=== PATIENT | female | born 1940 | race Caucasian/White ===

== ENCOUNTER 2017-01-27 17:32 | Outpatient (CLI) | payer MEDICARE, OTHER | END 2017-01-27 17:33 | disposition home or self-care (01) | DX: F04 Amnestic disorder due to known physiological condition (principal); G31.9 Degenerative disease of nervous system, unspecified ==

== ENCOUNTER 2017-02-22 13:20 | Outpatient (CLI) | payer MEDICARE, OTHER | END 2017-02-22 13:21 | disposition home or self-care (01) | DX: E04.2 Nontoxic multinodular goiter (principal) ==

== ENCOUNTER 2017-05-24 14:12 | Outpatient (CLI) | payer MEDICARE, OTHER ==
--- NOTE | 2017-05-26 11:45 | DEXA Report ---
DEXA BONE MINERAL DENSITY SCAN: 05/24/2017 CLINICAL HISTORY: A 76-year-old female who has osteoporosis. TECHNIQUE: Dual energy x-ray absorptiometry (DXA) was performed on a [employer] system. Regions measured are the AP spine, femoral neck, and, if needed, forearm. COMPARISON: None. In accordance with the International Society for Clinical Densitometry (ISCD) guidelines, data from previous exams may be reanalyzed using current recommendations and techniques. This is done to allow a more accurate basis for comparison with the current study. FINDINGS: L1 through L4 bone mineral density is 1.006 grams/sq cm for a T-score of -1.4. This is compatible with osteopenia according to World Health Organization guidelines. Left hip total bone mineral density is 0.816 grams/sq cm for a T-score of -1.5. This is compatible with osteopenia according to World Health Organization guidelines. Left femoral neck bone mineral density is 0.770 grams/sq cm. This is consistent with a T-score of -1.9 indicative of osteopenia according to World Health Organization guidelines. The data for the lumbar spine is as follows: REGION BMD (g/cm/cm) T-SCORE Z-SCORE L1 0.954 -1.5 0.6 L2 0.973 -1.9 0.2 L3 1.017 -1.5 0.5 L4 1.064 -1.1 0.9 TOTAL 1.006 -1.4 0.6 NOTE: All evaluable vertebrae are used for classification. The data for the hip is as follows: REGION BMD (g/cm/cm) T-SCORE Z-SCORE Neck 0.770 -1.9 0.2 TOTAL 0.816 -1.5 0.5 NOTE: The femoral neck or total proximal femur, whichever is lowest, is used for classification. IMPRESSION: THE WHO CLASSIFICATION BASED ON THE INTERNATIONAL REFERENCE STANDARD IS OSTEOPENIA. THE FRACTURE RISK IS INCREASED. RECOMMENDATION: Patients with diagnosis of osteoporosis or osteopenia should have regular bone mineral density assessment. For those eligible for Medicare, routine testing is allowed once every 2 years. Testing frequency can be increased for patients who have rapidly progressing disease or for those who are receiving medical therapy to restore bone mass. COMMENT: World Health Organization (WHO) definitions for osteoporosis and osteopenia: NORMAL BMD: T-score at -1.0 or higher, fracture risk is low. OSTEOPENIA BMD: T-score between -1.0 and -2.5, fracture risk is increased. OSTEOPOROSIS BMD: T-score at -2.5 or lower, fracture risk high. National Osteoporosis Foundation recommends: 1. Obtain adequate dietary calcium (at least 1200 mg per day) and vitamin D (400 -800 international units per day). 2. Participate, as appropriate, in regular weightbearing and muscle- strengthening exercise. 3. Avoid tobacco use and reduce alcohol and caffeine intake. 4. For more detailed information see the website at www.NOF.org. MTDD
== END 2017-05-24 14:13 | disposition home or self-care (01) ==
LOC: DI 14:12
PROVIDERS: ATTEND Internal Medicine
DX: M85.89 Other specified disorders of bone density and structure, multiple sites (principal)
CPT/HCPCS: 77080

== ENCOUNTER 2017-05-24 14:14 | Outpatient (CLI) | payer MEDICARE, OTHER ==
--- NOTE | 2017-05-25 13:34 | Mammography Report ---
DIGITAL BILATERAL SCREENING MAMMOGRAPHY: 05/24/2017 CLINICAL HISTORY: This is a 76-year-old female in for routine screening mammogram. Patient has no f amily history of breast cancer. Patient has had no prior breast surgeries. COMPARISON: 04/04/2007, 03/22/2008, 04/01/2010, 01/04/2012, 06/03/2014, . TECHNIQUE: Craniocaudad and oblique lateral views of each breast were obtained with [employer]ologic full-fie ld digital mammography. FINDINGS: Breasts are almost entirely composed of fat. No significant clusters of calcification are seen. No significant kallie are noted. No change is noted. IMPRESSION: BREASTS APPEAR RADIOGRAPHICALLY BENIGN. BI-RADS 1. Negative. RECOMMENDATION: Annual bilateral screening mammography. STANDARD QUALIFYING STATEMENTS 1. This examination was reviewed with the aid of Computer-Aided Detection (CAD). 2. A negative or benign imaging report should not delay biopsy if clinically suspicious findings are present. Consider surgical consultation if warranted. More than 5% of cancers are not identified by i maging. 3. Dense breasts may obscure an underlying neoplasm. JOB #: [id number] EXT JOB #:[id number]
== END 2017-05-24 14:15 | disposition home or self-care (01) ==
LOC: DI 14:14
PROVIDERS: ATTEND Internal Medicine
DX: Z12.31 Encounter for screening mammogram for malignant neoplasm of breast (principal); Z80.3 Family history of malignant neoplasm of breast
CPT/HCPCS: 77067

== ENCOUNTER 2018-08-08 11:42 | Outpatient (CLI) | payer MEDICARE, OTHER ==
--- NOTE | 2018-08-08 16:31 | XRAY Report ---
Reason: PAIN AND EDEMA 2ND MP JOINT R FOOT X 4 WEEKS Procedure Date: 08/08/2018 Accession Number: [id number] / [id number] Procedure: XR - Foot 3 View RT CPT Code: FULL RESULT: EXAM: RIGHT FOOT RADIOGRAPHY EXAM DATE: 08/08/2018 12:12 PM. CLINICAL HISTORY: Pain and edema 2nd MP joint right foot x 4 weeks. COMPARISON: None. TECHNIQUE: 3 views. FINDINGS: Bones: Mild inferior calcaneal spurring is noted. There is osseous overgrowth at the distal first metatarsal head with overlying soft tissue swelling. No fractures or aggressive bone lesions. Joints: Normal. No subluxations. IMPRESSION: Bunion and plantar enthesopathy. RADIA
== END 2018-08-08 11:43 | disposition home or self-care (01) ==
LOC: DI 11:42
PROVIDERS: ATTEND Podiatrist
DX: M21.611 Bunion of right foot (principal); M77.51 Other enthesopathy of right foot and ankle

== ENCOUNTER 2019-08-24 12:39 | Outpatient (CLI) | payer MEDICARE, OTHER ==
--- NOTE | 2019-08-27 09:32 | DEXA Report ---
Reason: MENOPAUSAL AND FEMALE CLIMACTERIC STATES Procedure Date: 08/24/2019 Accession Number: [id number] / [id number] Procedure: DEX - Dexa Spine and/or Hip CPT Code: FULL RESULT: EXAM: Dexa Spine and/or Hip DATE: 08/24/2019 1:16 PM CLINICAL HISTORY: Postmenopausal with personal history of osteopenia. A history of thyroid replacement therapy. TECHNIQUE: Dual energy x-ray absorptiometry (DXA) was performed on a [employer] System. Regions measured are the AP Spine, femoral neck, and if needed forearm. COMPARISON: 05/24/2017. In accordance with the International Society for Clinical Densitometry (ISCD) guidelines, data from previous exams may be reanalyzed using current recommendations and techniques. This is done to allow a more accurate basis for comparison with the current study. FINDINGS: The data for the lumbar spine is as follows: BMD (g/cm/cm) T-SCORE Z-SCORE REGION L1 0.923 -1.7 0.5 L2 0.937 -2.2 0.0 L3 0.939 -2.2 0.0 L4 1.053 -1.2 1.0 TOTAL 0.971 -1.7 0.4 NOTE: All evaluable vertebrae are used for classification The data for the hip is as follows: BMD (g/cm/cm) T-SCORE Z-SCORE REGION Neck 0.732 -2.2 0.1 TOTAL 0.787 -1.8 0.5 NOTE: The femoral neck or total proximal femur, whichever is lowest, is used for classification. DXA RESULTS SUMMARY: Spine SCAN DATE AGE BMD CHANGE VS CHANGE VS PREVIOUS PREVIOUS % 8/24/2019 [age] 0.971 -0.035* -3.5* 05/24/2017 [age] 1.006 * Denotes significant change at the 95% confidence level. Denotes dissimilar scan types or analysis methods. DXA RESULTS SUMMARY: Hip SCAN DATE AGE BMD CHANGE VS CHANGE VS PREVIOUS PREVIOUS % [birth year][age]24[birth year]2019 [age] 0.787 -0.029 -3.6 05/24/2017 [age] 0.816 * Denotes significant change at the 95% confidence level. Denotes dissimilar scan types or analysis methods. IMPRESSION: THE WHO CLASSIFICATION BASED ON THE INTERNATIONAL REFERENCE STANDARD IS OSTEOPENIA, REFERENCE LEFT FEMORAL NECK.. THE FRACTURE RISK IS INCREASED. Comment: The bone mineral density in both the lumbar spine and left hip have decreased since 05/24/2017. The decrease is statistically significant in the lumbar spine. RECOMMENDATION: Patients with diagnosis of osteoporosis or osteopenia should have regular bone mineral density assessment. For those eligible for Medicare, routine testing is allowed once every 2 years. Testing frequency can be increased for patients who have rapidly progressing disease or for those who are receiving medical therapy to restore bone mass. COMMENT: World Health Organization (WHO) definitions for osteoporosis and osteopenia: NORMAL BMD: T-score at -1.0 or higher, fracture risk is low OSTEOPENIA BMD: T-score between -1.0 and -2.5, fracture risk is increased. OSTEOPOROSIS BMD: T-score at -2.5 or lower, fracture risk is high. National Osteoporosis Foundation recommends: 1. Obtain adequate dietary calcium (at least 1200 mg per day) and vitamin D (400-800 international units per day). 2. Participate, as appropriate, in regular weightbearing and muscle-strengthening exercise. 3. Avoid tobacco use and reduce alcohol and caffeine intake. 4. For more detailed information see the website at www.NOF.org.
== END 2019-08-24 12:40 | disposition home or self-care (01) ==
LOC: DI 12:39
PROVIDERS: ATTEND Internal Medicine
DX: M85.89 Other specified disorders of bone density and structure, multiple sites (principal)
CPT/HCPCS: 77080

== ENCOUNTER 2019-08-24 12:41 | Outpatient (CLI) | payer MEDICARE, OTHER ==
--- NOTE | 2019-08-27 11:03 | Mammography Report ---
Reason: SCREENING MAMMO Procedure Date: 08/24/2019 Accession Number: [id number] / [id number] Procedure: SHAN - Screening Mammo w/Phil CPT Code: FULL RESULT: EXAM: Screening Mammo w/Phil DATE: 08/24/2019 1:39 PM CLINICAL HISTORY: Routine screening TECHNIQUE: (B) - Bilateral CC and MLO views were obtained. COMPARISON: 05/24/2017, 04/06/2016, 06/03/2014, 01/04/2012 and 04/01/2010 PARENCHYMAL PATTERN: (A) - The breasts demonstrate scattered fibroglandular densities bilaterally. FINDINGS: No significant interval change. There are no suspicious masses, calcifications, or areas of distortion. IMPRESSION: Negative examination. BI-RADS category 1. RECOMMENDATION: (ANNUAL) - Recommend routine annual screening mammography. BI-RADS CATEGORY: (1) - Negative. STANDARD QUALIFYING STATEMENTS: 1. This examination was not reviewed with the aid of Computer-Aided Detection (CAD). 2. A negative or benign imaging report should not preclude biopsy if clinically suspicious findings are present. 3. Dense breasts may obscure an underlying neoplasm. 4. This examination was reviewed with the aid of 3D breast imaging (tomosynthesis).
== END 2019-08-24 12:42 | disposition home or self-care (01) ==
LOC: DI 12:41
PROVIDERS: ATTEND Internal Medicine
DX: Z12.31 Encounter for screening mammogram for malignant neoplasm of breast (principal)
CPT/HCPCS: 77063; 77067

== ENCOUNTER 2020-05-08 06:12 | Outpatient (CLI) | payer MEDICARE, OTHER | END 2020-05-08 06:13 | disposition critical access hospital (66) | LOC: EMS 06:12 | PROVIDERS: ATTEND Surgery | DX: R55 Syncope and collapse (principal) | CPT/HCPCS: A0425; A0429 ==

== ENCOUNTER 2020-05-08 06:35 | Emergency (ER) | payer MEDICARE, OTHER ==
--- NOTE | 2020-05-08 08:11 | ED Physician Documentation ---
PD HPI SYNCOPE - Stated complaint Stated Complaint: GLF - Chief complaint Chief Complaint: Neuro - History obtained from History obtained from: Patient, Family - History of Present Illness Witnessed: Witnessed Timing - onset: Enter time (0600), Today Duration: Seconds Preceding symptoms: Light headed, Other (anxiety) Associated symptoms: No: Seizure, Incontinant of urine, Incontinant of stool, Headache, Chest pain, Palpitations, Diaphoresis, Dyspnea, Nausea / vomiting, Abdominal pain Contributing factors: Emotional upset Injury occurred: None Similar symptoms before: Has not had sx before Recently seen: Clinic - Additional information Additional information: 79-year-old female previously well has had some issues with anxiety recently today 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 She was attended to by her and she is brought to the ED for evaluation. The patient is relatively certain she had a panic attack as the etiology. She has recently started on an antidepressant for anxiety. Review of Systems Constitutional: denies: Fever Eyes: denies: Decreased vision Ears: denies: Ear pain Nose: denies: Rhinorrhea / runny nose, Congestion Throat: denies: Sore throat Cardiac: denies: Chest pain / pressure, Palpitations Respiratory: denies: Dyspnea, Cough GI: denies: Abdominal Pain, Nausea, Vomiting : denies: Dysuria, Frequency Skin: denies: Rash PD PAST MEDICAL HISTORY - Past Medical History Past Medical History: Yes Cardiovascular: Hypertension, High cholesterol Respiratory: None Neuro: None Endocrine/Autoimmune: HyPOthyroidism GI: Colon polyps APPLICATION SECURITY ENGINEER: None : None HEENT: Chronic hearing loss Psych: None Musculoskeletal: Osteoarthritis, Osteoporosis Derm: None - Past Surgical History Past Surgical History: Yes General: Colonoscopy Ortho: Knee replacement /APPLICATION SECURITY ENGINEER: Tubal ligation - Present Medications Home Medications: Ambulatory Orders Medication Instructions Recorded Confirmed Levothyroxine Sodium [Synthroid] 50 mcg PO 12/06/13 12/06/13 NIFEdipine [Procardia Xl] 30 mg PO ONCE 12/06/13 12/06/13 Simvastatin [Zocor] 20 mg PO QPM 12/06/13 12/06/13 - Allergies Allergies/Adverse Reactions: Allergies Allergy/AdvReac Type Severity Reaction Status Date / Time No Known Drug Allergies Allergy Verified 05/08/20 06:55 - Social History Does the pt smoke?: No Smoking Status: Never smoker Does the pt drink ETOH?: No Does the pt have substance abuse?: No - Immunizations Immunizations are current?: Yes - POLST Patient has POLST: No PD ED PE NORMAL - Vitals Vital signs reviewed: Yes (hypertensive ) - General General: Alert and oriented X 3, No acute distress, Well developed/nourished - HEENT HEENT: Atraumatic, PERRL, EOMI - Neck Neck: Supple, no meningeal sign, No bony TTP - Cardiac Cardiac: RRR, No murmur - Respiratory Respiratory: No respiratory distress, Clear bilaterally - Abdomen Abdomen: Normal bowel sounds, Soft, Non tender, Non distended, No organomegaly - Back Back: No CVA TTP, No spinal TTP - Derm Derm: Normal color, Warm and dry, No rash - Extremities Extremities: No deformity, No edema, No calf tenderness / cord - Neuro Neuro: Alert and oriented X 3, guidance counselor 2-12 intact, No motor deficit, No sensory deficit, Normal speech Eye Opening: Spontaneous Motor: Obeys Commands Verbal: Oriented GCS Score: 15 - Psych Psych: Normal mood, Normal affect Results - Vitals Vitals: Vital Signs - 24 hr 05/08/20 05/08/20 06:52 12:02 Temperature 36.4 C L 36.5 C Heart Rate 65 69 Respiratory 16 14 Rate Blood Pressure 161/69 H 102/88 H O2 Saturation 93 100 Oxygen O2 Source Room air - EKG (time done) 0838 Rate: Rate (enter#) (63) Rhythm: NSR, LAE Compare to prior EKG: Old EKG unavailable Computer interpretation: Agree with computer - Labs Labs: Laboratory Tests 05/08/20 05/08/20 05/08/20 08:20 08:20 08:20 WBC 8.3 RBC 5.14 Hgb 14.9 Hct 47.3 H MCV 92.0 MCH 29.0 MCHC 31.5 L RDW 12.1 Plt Count 239 MPV 10.4 Neut # (Auto) 7.0 H Lymph # (Auto) 0.9 L [place] # (Auto) 0.3 Eos # (Auto) 0.0 Baso # (Auto) 0.0 Absolute Nucleated RBC 0.00 Nucleated RBC % 0.0 Sodium 141 Potassium 3.1 L Chloride 101 Carbon Dioxide 28 Anion Gap 12.0 BUN 15 Creatinine 0.9 Estimated GFR (MDRD) 60 L Glucose 115 H Calcium 9.5 Total Bilirubin 0.5 AST 22 ALT 11 Alkaline Phosphatase 55 Troponin I High Sens 5.5 Total Protein 7.5 Albumin 4.5 Globulin 3.0 Albumin/Globulin Ratio 1.5 Lipase 33 Urine Color Urine Clarity Urine pH Ur Specific [place] Urine Protein Urine Glucose (UA) Urine Ketones Urine Occult Blood Urine Nitrite Urine Bilirubin Urine Urobilinogen Ur Leukocyte Esterase Ur Microscopic Review Urine Culture Comments 05/08/20 11:10 WBC RBC Hgb Hct MCV MCH MCHC RDW Plt Count MPV Neut # (Auto) Lymph # (Auto) [place] # (Auto) Eos # (Auto) Baso # (Auto) Absolute Nucleated RBC Nucleated RBC % Sodium Potassium Chloride Carbon Dioxide Anion Gap BUN Creatinine Estimated GFR (MDRD) Glucose Calcium Total Bilirubin AST ALT Alkaline Phosphatase Troponin I High Sens Total Protein Albumin Globulin Albumin/Globulin Ratio Lipase Urine Color YELLOW Urine Clarity CLEAR Urine pH 7.5 Ur Specific [place] 1.015 Urine Protein NEGATIVE Urine Glucose (UA) NEGATIVE Urine Ketones NEGATIVE Urine Occult Blood NEGATIVE Urine Nitrite NEGATIVE Urine Bilirubin NEGATIVE Urine Urobilinogen 0.2 (NORMAL) Ur Leukocyte Esterase NEGATIVE Ur Microscopic Review NOT INDICATED Urine Culture Comments NOT INDICATED Procedures - IVC sono (time) 0805 Bedside IVC sono: IVC measures (cm) (1.42), Euvolemia PD MEDICAL DECISION MAKING - ED course Complexity details: considered differential, d/w patient, d/w family ED course: 79-year-old female with a syncopal episode believed to be secondary to a panic attack is evaluated here in the emergency department with blood work and electrocardiogram. All studies are unremarkable Departure - Departure Disposition: 01 Home, Self Care Clinical Impression: Stress reaction Condition: Stable Instructions: ED Stress React Follow-Up: Kenneth Cloud MD [Primary Care Provider] - Discharge Date/Time: 05/08/20 12:08
[2020-05-08 08:41] LABS: BASOPHILS % (AUTO) 0.4 %; EOSINOPHILS % (AUTO) 0.1 %; HGB - HEMOGLOBIN 14.9 g/dL (12.0-16.0); LYMPHOCYTES # (AUTO) 0.9 10^3/uL (1.5-3.5); LYMPHOCYTES % (AUTO) 10.9 %; MEAN CORPUSCULAR HGB CONC 31.5 g/dL (32.0-36.0); MEAN PLATELET VOLUME 10.4 fL (7.9-10.8); MONOCYTES # (AUTO) 0.3 10^3/uL (0.0-1.0); MONOCYTES % (AUTO) 4.1 %; NEUTROPHILS % (AUTO) 84.3 %; PLT - PLATELET COUNT 239 10^3/uL (130-450); RED BLOOD COUNT 5.14 10^6/uL (4.20-5.40); RED CELL DISTRIBUTION WIDTH 12.1 % (12.0-15.0); WHITE BLOOD COUNT 8.3 x10^3/uL (4.8-10.8)
[2020-05-08 08:57] LABS: ALBUMIN 4.5 g/dL (3.2-5.5); ALBUMIN/GLOBULIN RATIO 1.5 (1.0-2.2); BILIRUBIN,TOTAL 0.5 mg/dL (0.2-1.0); CALCIUM 9.5 mg/dL (8.5-10.3); CREATININE 0.9 mg/dL (0.4-1.0); TOTAL PROTEIN 7.5 g/dL (6.7-8.2)
[2020-05-08] MEDS ORDERED: POTASSIUM CHLORIDE 20 MEQ TABLET PO STA (09:40)
[2020-05-08 11:30] LABS: BILIRUBIN,URINE NEGATIVE (NEGATIVE); GLUCOSE, URINE (UA) NEGATIVE (NEGATIVE); KETONES,URINE (UA) NEGATIVE (NEGATIVE); LEUKOCYTE ESTERASE, URINE NEGATIVE (NEGATIVE); NITRITE,URINE NEGATIVE (NEGATIVE); OCCULT BLOOD,URINE NEGATIVE (NEGATIVE); PH,URINE 7.5 PH (5.0-7.5); PROTEIN,URINE NEGATIVE (NEGATIVE); UROBILINOGEN,URINE 0.2 (NORMAL) E.U./dL (NORMAL)
[2020-05-08 11:33] LABS: CLARITY,URINE CLEAR (CLEAR)
[2020-05-08 12:04] VITALS: BP 102/88
== END 2020-05-08 12:08 | disposition home or self-care (01) ==
LOC: EDUNIT# → ED 06:35
DX: R55 Syncope and collapse (principal); F43.9 Reaction to severe stress, unspecified; F41.9 Anxiety disorder, unspecified; I10 Essential (primary) hypertension
CPT/HCPCS: 36415; 80053; 81003; 83690; 84484; 85025; 93005; 99284; A9270; 81001; 87086

== ENCOUNTER 2020-12-22 10:11 | Outpatient (CLI) | payer MEDICARE, OTHER ==
--- NOTE | 2020-12-22 10:32 | CT Report ---
PROCEDURE: HEAD WO INDICATIONS: ORGANIC MEMORY IMPAIRMENT TECHNIQUE: Noncontrast 4.5 mm thick angled axial sections acquired from the foramen magnum to the vertex. For r adiation dose reduction, the following was used: automated exposure control, adjustment of mA and/or kV according to patient size. COMPARISON: 01/27/2017 FINDINGS: Image quality: Excellent. CSF spaces: Basal cisterns are patent. No extra-axial fluid collections. Ventricles are normal in size and shape. Brain: No midline shift. No intracranial masses or hemorrhage. Wells-white matter interface is norm al. Skull and face: Calvarium and visualized facial bones are intact, without suspicious lesions. Sinuses: Visualized sinuses and mastoids are clear. IMPRESSION: Unremarkable intracranial study for age, with note made of brain parenchymal volume loss and chronic small vessel ischemic change. Reviewed by: Liang Taylor MD on 12/22/2020 9:30 AM [facility] Approved by: Liang Taylor MD on 12/22/2020 9:30 AM [facility] Station ID: [id number]
== END 2020-12-22 10:12 | disposition home or self-care (01) ==
LOC: DI 10:11
PROVIDERS: ATTEND Internal Medicine
DX: F04 Amnestic disorder due to known physiological condition (principal)

== ENCOUNTER 2021-03-19 13:01 | Outpatient (CLI) | payer MEDICARE, OTHER ==
--- NOTE | 2021-03-20 10:47 | Mammography Report ---
BILATERAL DIGITAL SCREENING MAMMOGRAM 3D/2D: 03/19/2021 CLINICAL: Routine screening. Comparison is made to exams dated: 08/24/2019 mammogram, 05/24/2017 mammogram, 04/06/2016 mammogram, mammogram, 01/04/2012 mammogram, and 04/01/2010 mammogram - [facility]. The re are scattered fibroglandular elements in both breasts. No significant masses, calcifications, or other findings are seen in either breast. There has been no significant interval change. IMPRESSION: NEGATIVE There is no mammographic evidence of malignancy. A 1 year screening mammogram is recommended. This exam was interpreted at Station ID: [id number]. NOTE: For mammograms, a report in lay terms will be sent to the patient. Approximately 15% of breast malignancies will not be visualized mammographically. In the management of a palpable breast mass, a negative mammogram must not discourage biopsy of a clinically suspicious lesion. Electronically Signed By: Tremaine Aguillon M.D. ddp/penrad:03/19/2021 13:39:56 ACR BI-RADS Category 1: Negative [id number] PARENCHYMAL PATTERN: (A) - The breast(s) demonstrate(s) scattered fibroglandular densities. BI-RADS CATEGORY: (1) - 1 RECOMMENDATION: (ANNUAL) - Recommend routine annual screening mammography. [id number] 1 year screening LATERALITY: (B)
== END 2021-03-19 13:02 | disposition home or self-care (01) ==
LOC: DI.N 13:01
PROVIDERS: ATTEND Internal Medicine
DX: Z12.31 Encounter for screening mammogram for malignant neoplasm of breast (principal)

== ENCOUNTER 2021-08-06 08:25 | Outpatient (CLI) | payer MEDICARE, OTHER ==
--- NOTE | 2021-08-06 08:49 | CT Report ---
PROCEDURE: HEAD WO INDICATIONS: AMNESTIC DISORDER DUE TO KNOWN PHYSIOLOGICAL CONDI TECHNIQUE: Noncontrast 4.5 mm thick angled axial sections acquired from the foramen magnum to the vertex. For r adiation dose reduction, the following was used: automated exposure control, adjustment of mA and/or kV according to patient size. COMPARISON: 12/22/2020 and 01/27/2017 FINDINGS: Image quality: Excellent. CSF spaces: Basal cisterns are patent. No extra-axial fluid collections. The ventricles are symmet priscila in size and shape. Brain: No intracranial bleeds or masses. There is cerebral volume loss for age, with resultant vent ricular and sulcal prominence. There are periventricular and deep white matter chronic small vessel ischemic changes. There is intracranial internal carotid artery atherosclerosis. Skull and face: Calvarium and visualized facial bones appear intact, without suspicious lesions. Sinuses: Visualized sinuses and mastoids are clear. IMPRESSION: Stable examination with no acute intracranial disease process. Reviewed by: Sana Mack MD, PhD on 08/06/2021 8:48 AM PDT Approved by: Sana Mack MD, PhD on 08/06/2021 8:48 AM PDT Station ID: [id number]
== END 2021-08-06 08:26 | disposition home or self-care (01) ==
LOC: DI 08:25
PROVIDERS: ATTEND Internal Medicine
DX: F04 Amnestic disorder due to known physiological condition (principal)

== ENCOUNTER 2022-03-13 07:41 | Outpatient (CLI) | payer MEDICARE, OTHER | END 2022-03-13 07:42 | disposition critical access hospital (66) | LOC: EMS 07:41 | DX: R55 Syncope and collapse (principal); R10.9 Unspecified abdominal pain; R15.9 Full incontinence of feces; R19.7 Diarrhea, unspecified; R42 Dizziness and giddiness; R53.1 Weakness | CPT/HCPCS: A0425; A0429 ==

== ENCOUNTER 2022-03-13 08:04 | Emergency (ER) | payer MEDICARE, OTHER ==
[2022-03-13 09:16] LABS: BASOPHILS % (AUTO) 0.4 %; EOSINOPHILS # (AUTO) 0.1 10^3/uL (0.0-0.7); EOSINOPHILS % (AUTO) 1.2 %; HCT - HEMATOCRIT 41.6 % (37.0-47.0); HGB - HEMOGLOBIN 13.4 g/dL (12.0-16.0); MEAN CORPUSCULAR HEMOGLOBIN 29.1 pg (27.0-31.0); MEAN CORPUSCULAR HGB CONC 32.2 g/dL (32.0-36.0); MEAN CORPUSCULAR VOLUME 90.2 fL (81.0-99.0); MEAN PLATELET VOLUME 10.1 fL (7.9-10.8); MONOCYTES # (AUTO) 0.5 10^3/uL (0.0-1.0); MONOCYTES % (AUTO) 6.8 %; NEUTROPHILS # (AUTO) 5.2 10^3/uL (1.5-6.6); NEUTROPHILS % (AUTO) 76.3 %; PLT - PLATELET COUNT 184 10^3/uL (130-450); RED BLOOD COUNT 4.61 10^6/uL (4.20-5.40); RED CELL DISTRIBUTION WIDTH 11.7 % (12.0-15.0); WHITE BLOOD COUNT 6.8 x10^3/uL (4.8-10.8)
[2022-03-13] MEDS ORDERED: SODIUM CHLORIDE 0.9% 1,000 ML IV STA (09:21)
[2022-03-13 09:31] LABS: ALBUMIN 3.7 g/dL (3.2-5.5); ALBUMIN/GLOBULIN RATIO 1.2 (1.0-2.2); ALKALINE PHOSPHATASE 56 IU/L (42-121); ALT ALANINE AMINOTRANSFERASE < 10 IU/L (10-60); AST ASPARTATE AMINOTRANSFERASE 20 IU/L (10-42); BILIRUBIN,TOTAL 0.4 mg/dL (0.2-1.0); BUN - BLOOD UREA NITROGEN 15 mg/dL (6-20); CALCIUM 9.1 mg/dL (8.5-10.3); CARBON DIOXIDE - CO2 25 mmol/L (21-32); CHLORIDE 104 mmol/L (101-111); CREATININE 0.8 mg/dL (0.4-1.0); GFR - MDRD 69 (>89); GLUCOSE 99 mg/dL (70-100); LIPASE 111 U/L (22-51); POTASSIUM 3.7 mmol/L (3.5-5.0); SODIUM 138 mmol/L (135-145); TOTAL PROTEIN 6.7 g/dL (6.7-8.2)
--- NOTE | 2022-03-13 09:53 | ED Physician Documentation ---
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 She has had 3 other episodes of syncope or near near syncope this year. Review of Systems Constitutional: denies: Fever Eyes: denies: Decreased vision Ears: denies: Ear pain Nose: denies: Congestion Throat: denies: Sore throat Cardiac: denies: Chest pain / pressure, Palpitations Respiratory: denies: Dyspnea, Cough GI: reports: Diarrhea. denies: Abdominal Pain, Nausea, Vomiting : denies: Dysuria, Frequency Skin: denies: Rash Musculoskeletal: denies: Neck pain, Back pain, Extremity pain Neurologic: reports: Near syncope, Syncope. denies: Generalized weakness, Focal weakness, Numbness, Difficulty speaking, Confused, Altered mental status, Headache, Head injury, LOC PD PAST MEDICAL HISTORY - Past Medical History Past Medical History: Yes Cardiovascular: Hypertension, High cholesterol Respiratory: None Neuro: None Endocrine/Autoimmune: HyPOthyroidism GI: Colon polyps CASING TIER: None : None HEENT: Chronic hearing loss Psych: None Musculoskeletal: Osteoarthritis, Osteoporosis Derm: None - Past Surgical History Past Surgical History: Yes General: Colonoscopy Ortho: Knee replacement /CASING TIER: Tubal ligation - Present Medications Home Medications: Ambulatory Orders Medication Instructions Recorded Confirmed Levothyroxine Sodium [Synthroid] 50 mcg PO 12/06/13 12/06/13 NIFEdipine [Procardia Xl] 30 mg PO ONCE 12/06/13 12/06/13 Simvastatin [Zocor] 20 mg PO QPM 12/06/13 12/06/13 - Allergies Allergies/Adverse Reactions: Allergies Allergy/AdvReac Type Severity Reaction Status Date / Time No Known Drug Allergies Allergy Verified 03/13/22 08:13 - Social History Does the pt smoke?: No Smoking Status: Never smoker Does the pt drink ETOH?: No Does the pt have substance abuse?: No - Immunizations Immunizations are current?: Yes - POLST Patient has POLST: No PD ED PE NORMAL - Vitals Vital signs reviewed: Yes (hypertensive mild) - General General: Alert and oriented X 3, No acute distress, Well developed/nourished - HEENT HEENT: Atraumatic, PERRL, EOMI - Neck Neck: Supple, no meningeal sign, No bony TTP - Cardiac Cardiac: RRR, No murmur - Respiratory Respiratory: No respiratory distress, Clear bilaterally - Abdomen Abdomen: Normal bowel sounds, Soft, Non tender, Non distended, No organomegaly - Back Back: No CVA TTP, No spinal TTP - Derm Derm: Normal color, Warm and dry, No rash - Extremities Extremities: No deformity, No edema - Neuro Neuro: Alert and oriented X 3, manager pet 2-12 intact, No motor deficit, No sensory deficit, Normal speech Eye Opening: Spontaneous Motor: Obeys Commands Verbal: Oriented GCS Score: 15 - Psych Psych: Normal mood, Normal affect Results - Vitals Vitals: Vital Signs - 24 hr 03/13/22 03/13/22 03/13/22 08:08 08:16 10:15 Temperature 37.0 C Heart Rate 61 61 66 Respiratory 16 16 15 Rate Blood Pressure 149/77 H 149/77 H 115/64 O2 Saturation 99 99 97 03/13/22 03/13/22 03/13/22 12:00 14:06 16:06 Temperature Heart Rate 66 60 66 Respiratory 17 16 11 L Rate Blood Pressure 142/69 H 147/55 H 155/62 H O2 Saturation 98 96 100 Oxygen O2 Source Room air - EKG (time done) 901 Rate: Rate (enter#) (65) Rhythm: NSR Ischemia: Normal ST segments Compare to prior EKG: Unchanged from prior EKG (SPT 05-08-20 no changes) Computer interpretation: Agree with computer 1202 Rate: Rate (enter#) (69) Rhythm: NSR Ischemia: Normal ST segments Compare to prior EKG: Unchanged from prior EKG (SPT ealier today no changes) Computer interpretation: Agree with computer - Labs Labs: Laboratory Tests 03/13/22 03/13/22 03/13/22 09:10 09:10 09:10 WBC 6.8 RBC 4.61 Hgb 13.4 Hct 41.6 MCV 90.2 MCH 29.1 MCHC 32.2 RDW 11.7 L Plt Count 184 MPV 10.1 Neut # (Auto) 5.2 Lymph # (Auto) 1.0 L Stanly # (Auto) 0.5 Eos # (Auto) 0.1 Baso # (Auto) 0.0 Absolute Nucleated RBC 0.00 Nucleated RBC % 0.0 Sodium 138 Potassium 3.7 Chloride 104 Carbon Dioxide 25 Anion Gap 9.0 BUN 15 Creatinine 0.8 Estimated GFR (MDRD) 69 L Glucose 99 Calcium 9.1 Total Bilirubin 0.4 AST 20 ALT < 10 L Alkaline Phosphatase 56 Troponin I High Sens 62.0 H* Total Protein 6.7 Albumin 3.7 Globulin 3.0 Albumin/Globulin Ratio 1.2 Lipase 111 H Urine Color Urine Clarity Urine pH Ur Specific [place] Urine Protein Urine Glucose (UA) Urine Ketones Urine Occult Blood Urine Nitrite Urine Bilirubin Urine Urobilinogen Ur Leukocyte Esterase Urine RBC Urine WBC Ur Squamous Epith Cells Urine Bacteria Ur Microscopic Review Urine Culture Comments SARS-CoV-2 (PCR) 03/13/22 03/13/22 03/13/22 10:10 11:07 13:02 WBC RBC Hgb Hct MCV MCH MCHC RDW Plt Count MPV Neut # (Auto) Lymph # (Auto) Stanly # (Auto) Eos # (Auto) Baso # (Auto) Absolute Nucleated RBC Nucleated RBC % Sodium Potassium Chloride Carbon Dioxide Anion Gap BUN Creatinine Estimated GFR (MDRD) Glucose Calcium Total Bilirubin AST ALT Alkaline Phosphatase Troponin I High Sens 182.8 H* Total Protein Albumin Globulin Albumin/Globulin Ratio Lipase Urine Color YELLOW Urine Clarity CLEAR Urine pH 7.0 Ur Specific [place] 1.010 Urine Protein NEGATIVE Urine Glucose (UA) NEGATIVE Urine Ketones NEGATIVE Urine Occult Blood NEGATIVE Urine Nitrite NEGATIVE Urine Bilirubin NEGATIVE Urine Urobilinogen 0.2 (NORMAL) Ur Leukocyte Esterase MODERATE H Urine RBC None Seen Urine WBC 4-5 Ur Squamous Epith Cells NONE SEEN Urine Bacteria Few Ur Microscopic Review INDICATED Urine Culture Comments INDICATED SARS-CoV-2 (PCR) NOT DETECTED 03/13/22 15:05 WBC RBC Hgb Hct MCV MCH MCHC RDW Plt Count MPV Neut # (Auto) Lymph # (Auto) Stanly # (Auto) Eos # (Auto) Baso # (Auto) Absolute Nucleated RBC Nucleated RBC % Sodium Potassium Chloride Carbon Dioxide Anion Gap BUN Creatinine Estimated GFR (MDRD) Glucose Calcium Total Bilirubin AST ALT Alkaline Phosphatase Troponin I High Sens 1222.8 H* Total Protein Albumin Globulin Albumin/Globulin Ratio Lipase Urine Color Urine Clarity Urine pH Ur Specific [place] Urine Protein Urine Glucose (UA) Urine Ketones Urine Occult Blood Urine Nitrite Urine Bilirubin Urine Urobilinogen Ur Leukocyte Esterase Urine RBC Urine WBC Ur Squamous Epith Cells Urine Bacteria Ur Microscopic Review Urine Culture Comments SARS-CoV-2 (PCR) - Rads (name of study) CTA chest Radiology: Prelim report reviewed (Impression:. No evidence for pulmonary embolism. No acute pulmonary opacity a 6 mm subsolid nodule in the right upper lobe. See enclosed follow-up recommendation mild cardiac megaly right thyroidectomy enlarged left thyroid lobe is heterogeneous enhancement), EMP read indepedently, See rad report Procedures - IVC sono (time) 0915 Bedside IVC sono: IVC measures (cm) (1.21), IVC collapsed c insp (cm) (complete), Dehydration (est 1 liter deficit) PD MEDICAL DECISION MAKING - ED course Complexity details: reviewed old records, reviewed results, re-evaluated patient, considered differential, d/w patient, d/w family ED course: Previously well 81-year-old female who has had syncopal episodes previously has had a syncopal episode today which appears to be of a vasovagal type reaction she was having a diarrheal bowel movement with abdominal cramping at the time. On initial presentation to the emergency department patient appeared mildly dehydrated and she was administered intravenous saline. She had a normal- appearing nonischemic electrocardiogram and we were surprised to find her troponin elevated at 62. A repeat troponin done 2 hours later was elevated at 182.8. A repeat olecranon gram done at the same time is also nonischemic appearing and unchanged.The patient had no episodes of arrhythmia during her stay in the emergency department. I called out to our friends at [facility] and talked to Dr. Duran who recommended placing the patient on heparin and aspirin and finding a bed for NSTEMI. They do not have beds at [facility] today. I called out to [facility] in [place] spoke to the software project manager there, Dr. Isra Ortega, who recommended admission for NSTEMI and stress test. Dr. Shadi Taylor the hospitalist at [facility] recommended a CT angiogram of the chest prior to transfer. This test was negative for PE had a 6mm nodule that will need one year followup. Departure - Departure Disposition: 02 Transfer Acute Care Hosp Clinical Impression: Non-STEMI (non-ST elevated myocardial infarction), Vasovagal syncope Condition: Stable
[2022-03-13 10:17] LABS: BILIRUBIN,URINE NEGATIVE (NEGATIVE); GLUCOSE, URINE (UA) NEGATIVE (NEGATIVE); KETONES,URINE (UA) NEGATIVE (NEGATIVE); LEUKOCYTE ESTERASE, URINE MODERATE (NEGATIVE); NITRITE,URINE NEGATIVE (NEGATIVE); OCCULT BLOOD,URINE NEGATIVE (NEGATIVE); PROTEIN,URINE NEGATIVE (NEGATIVE); UROBILINOGEN,URINE 0.2 (NORMAL) E.U./dL (NORMAL)
[2022-03-13 10:28] LABS: CLARITY,URINE CLEAR (CLEAR); RBC,URINE None Seen /HPF (0-5); SQUAMOUS EPITHELIAL CELL,UR NONE SEEN (<= Few)
[2022-03-13 10:29] LABS: BACTERIA,URINE Few /HPF (None Seen)
[2022-03-13] MEDS ORDERED: ASPIRIN CHEW 81 MG TABLET PO STA (11:46)
[2022-03-13] MEDS ORDERED: HEPARIN 25000UNITS/500ML (D5W) 25,000 UNIT/500 ML BAG IV SCH (12:00)
[2022-03-13] MEDS ORDERED: IOPAMIDOL-300 100 ML VIAL ONE (15:25)
[2022-03-13] MEDS ORDERED: IOPAMIDOL-300 100 ML VIAL IVP ONE (15:48)
--- NOTE | 2022-03-13 16:35 | CT Report ---
PROCEDURE: ANGIO CHEST W/WO INDICATIONS: PE study CONTRAST: IV CONTRAST: Isovue 300 ml: 80 PO CONTRAST: *NO PO CONTRAST TECHNIQUE: After the administration of intravenous contrast, 2 mm axial images were acquired from the pulmonary apices to the posterior costophrenic angles during the arterial phase. In addition, 1 mm lung kernel and 5 mm soft tissue kernel reconstructions were performed. 3-dimensional coronal oblique maximum int ensity projection (MIP) reformats, 8 mm axial MIP, and 5 mm coronal and sagittal MPR reformats were t hen performed through the thorax. For radiation dose reduction, the following was used: automated exp osure control, adjustment of mA and/or kV according to patient size. COMPARISON: None. FINDINGS: Image quality: Excellent. Pulmonary arteries: Pulmonary arteries are normal in size, and demonstrate no intraluminal filling d efects to suggest central pulmonary embolism. Lungs and pleura: There is a 6 mm subsolid nodule in the right upper lobe. No pleural effusions or p neumothorax. Central and peripheral airways are patent. Mediastinum: Heart size is mildly increased. No pericardial effusion. No mediastinal or hilar adeno belgica. Thoracic aorta is normal in caliber and enhancement. Esophagus is normal in caliber, without hiatal hernia. Bones and chest wall: No suspicious bony lesions. Scoliosis and degenerative changes in thoracic and upper lumbar spine. Ribs and thoracic spine appear intact throughout. No axillary or supraclavicula r adenopathy. Right thyroid lobe surgically resected. The thyroid is enlarged and heterogeneous. Abdomen: Visualized upper abdominal solid organs appear normal in the early arterial phase of enhanc ement. IMPRESSION: 1. No evidence for pulmonary embolism. 2. No acute pulmonary opacity. 3. A 6 mm subsolid nodule in the right upper lobe. These enclosed follow-up recommendation. 4. Mild cardiac megaly. 5. Right thyroidectomy. Enlarged left thyroid lobe is heterogeneous enhancement. Fleischner Society criteria for SOLID lung nodule followup. Nodule size (mm)Low-risk patientHigh-risk patient "d4No follow-up neededFollow-up at 12 mo; if no change, no further follow-up >[id number]-xs CT at 12 mo; if no change, no further follow-up needed.Initial follow-up CT at 6-12 mo, then 18-24 mo if no change. >6-8Initial follow-up CT at 6-12 mo, then 18-24 mo if no change. Initial follow-up CT at 3-6 mo, then 9-12 mo and 24 mo if no change. >8Follow-up CT at 3, 9, 24 mo. Or PET and/or biopsy.Same as for low-risk pts. Reviewed by: Tera Ballesteros MD on 03/13/2022 3:34 PM VIOLETTA Approved by: Tera Ballesteros MD on 03/13/2022 3:34 PM AKSETH Station ID: [id number]
[2022-03-13 18:05] VITALS: BP 134/82
== END 2022-03-13 19:45 | disposition short-term general hospital (02) ==
LOC: EDUNIT# → ED 08:04
DX: I21.4 Non-ST elevation (NSTEMI) myocardial infarction (principal); I10 Essential (primary) hypertension; E86.0 Dehydration
CPT/HCPCS: 36415; 71275; 80053; 81001; 83690; 84484; 85025; 85730; 87086; 87635; 93005; 96361; 96365; 96366; 96376; 99284; 99285; A9270; Q9967; 81003

== ENCOUNTER 2022-06-01 09:32 | Outpatient (CLI) | payer MEDICARE, OTHER ==
--- NOTE | 2022-06-01 11:57 | Mammography Report ---
BILATERAL DIGITAL SCREENING MAMMOGRAM 3D/2D: 06/01/2022 CLINICAL: Routine screening. Comparison is made to exams dated: 03/19/2021 mammogram, 08/24/2019 mammogram, 05/24/2017 mammogram, mammogram, and 06/03/2014 mammogram - [facility]. There are scattered fibr oglandular elements in both breasts. No significant masses, calcifications, or other findings are seen in either breast. There has been no significant interval change. IMPRESSION: NEGATIVE There is no mammographic evidence of malignancy. A 1 year screening mammogram is recommended. Based on the Tyrer Cuzick model (a risk assessment model) the patients lifetime risk is 0.7% and her 10 year risk is 0.0%. According to the ACR, ACS, and NCCN guidelines, an annual breast MRI exam ezequiel g with mammogram is recommended if the patients lifetime risk is 20% or greater. This exam was interpreted at Station ID: [id number]. NOTE: For mammograms, a report in lay terms will be sent to the patient. Approximately 15% of breast malignancies will not be visualized mammographically. In the management of a palpable breast mass, a negative mammogram must not discourage biopsy of a clinically suspicious lesion. Electronically Signed By: Charlie Urban acr/penrad:06/01/2022 10:22:13 ACR BI-RADS Category 1: Negative 3341F PARENCHYMAL PATTERN: (A) - The breast(s) demonstrate(s) scattered fibroglandular densities. BI-RADS CATEGORY: (1) - 1 RECOMMENDATION: (ANNUAL) - Recommend routine annual screening mammography. [id number] 1 year screening LATERALITY: (B)
== END 2022-06-01 09:33 | disposition home or self-care (01) ==
LOC: DI 09:32
PROVIDERS: ATTEND Internal Medicine
DX: Z12.31 Encounter for screening mammogram for malignant neoplasm of breast (principal); N95.1 Menopausal and female climacteric states

== ENCOUNTER 2022-06-01 09:33 | Outpatient (CLI) | payer MEDICARE, OTHER ==
--- NOTE | 2022-06-01 14:58 | DEXA Report ---
PROCEDURE: Dexa Spine and/or Hip INDICATIONS: POST MENOPAUSAL TECHNIQUE: Dual energy x-ray absorptiometry (DXA) was performed on a [employer] System. Regions measur ed are the AP Spine, femoral neck, and if needed forearm. COMPARISON: DEXA 08/24/2019 and 05/24/2017. FINDINGS: Lumbar Spine: Bone Mineral Density 0.866 g/cm/cm,T score -2.6, osteoporosis. This represents a 10.8% decrease wh en compared to the exam from 08/24/2019. Left Hip: Bone Mineral Density 0.672 g/cm/cm,T score -2.7, osteoporosis. This represents a 14.6% decrease when compared to the prior exam from 08/24/2019. Left Femoral Neck: Bone Mineral Density 0.679 g/cm/cm, T score -2.6, osteoporosis (T score greater or equal to -1.0: NORMAL) (T score from -1.1 to -2.4: OSTEOPENIA) (T score less than or equal to -2.5 to: OSTEOPOROSIS) Impression: Decreased bone mineral density within the osteoporosis range at the lumbar spine and left hip. Findin gs have progressed when compared to the prior DEXA from 08/24/2019. Patients with diagnosis of osteoporosis or osteopenia should have regular bone mineral density assess ment. For those eligible for Medicare, routine testing is allowed once every 2 years. Testing frequ ency can be increased for patients who have rapidly progressing disease or for those who are receivin g medical therapy to restore bone mass. Reviewed by: Arcenio Galloway MD on 06/01/2022 2:57 PM PDT Approved by: Arcenio Galloway MD on 06/01/2022 2:57 PM PDT Station ID: [id number]
== END 2022-06-01 09:34 | disposition home or self-care (01) ==
LOC: DI 09:33
PROVIDERS: ATTEND Internal Medicine
DX: M81.0 Age-related osteoporosis without current pathological fracture (principal)

== ENCOUNTER 2022-09-27 10:12 | Outpatient (CLI) | payer MEDICARE, OTHER | END 2022-09-27 10:13 | disposition critical access hospital (66) | LOC: EMS 10:12 | DX: R46.4 Slowness and poor responsiveness (principal); I95.9 Hypotension, unspecified; R00.1 Bradycardia, unspecified | CPT/HCPCS: A0425; A0427 ==

== ENCOUNTER 2022-09-27 10:36 | Emergency (ER) | payer MEDICARE, OTHER ==
[2022-09-27] MEDS ORDERED: SODIUM CHLORIDE 0.9% 1,000 ML IV STA ×3 (10:52→14:07)
--- OUTSIDE RECORDS SUMMARY | 2022-09-27 10:55 | EXTERNAL MEDICAL SUMMARY RPT | Continuity of Care Document ---
:1940 Author Organization [facility] Address [address] [place] [address] Phone Allergies No information. Encounters No information. Functional Status No information. Immunizations No information. Medications No information. Problems No information. Procedures No information. Results/Labs test date author facility value unit interpret ation Result panel 1 (unknown) (no (unknown) (unknown) (no value) (units (unk nown) date) unknown) (unknown) (no (unknown) (unknown) 08/24/22 (units (unkno wn) date) unknown) (unknown) (no (unknown) (unknown) [address] [place] [address] (units (unknown) date) unknown) (unknown) (no (unknown) (unknown) Accession (units (unkn own) date) Number: unknown) [id number] (unknown) (no (unknown) (unknown) Age/Sex: 82 / F (units (unknown) date) Date of Service: unknown) (unknown) (no (unknown) (unknown) [place], [place] (units ( unknown) date) [id number] unknown) (unknown) (no (unknown) (unknown) Approved by: (units (u nknown) date) isaías Fischer M.D. on 08/24/2022 at 16:51 (unknown) (no (unknown) (unknown) Brain: No (units (unkn own) date) midline shift. No unknown) intracranial bleeds or masses. No abnormal (unknown) (no (unknown) (unknown) COMPARISON: (units (un known) date) None. unknown) (unknown) (no (unknown) (unknown) CSF Spaces: (units (un known) date) Basal cisterns unknown) are patent. No extra-axial fluid collections. 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 unknown) (unknown) (no (unknown) (unknown) [facility] (units (unknown) date) unknown) (unknown) (no (unknown) (unknown) Loc: CT (units (unkno wn) date) unknown) (unknown) (no (unknown) (unknown) [id number] (units (unk nown) date) unknown) (unknown) (no (unknown) (unknown) Moderate atrophy (units (unknown) date) and white matter unknown) chronic ischemic change without intracranial (unknown) (no (unknown) (unknown) Ordering (units (unkno wn) date) Provider: unknown) Kenneth Cloud MD (unknown) (no (unknown) (unknown) PROCEDURE: CT (units ( unknown) date) HEAD/BRAIN WO/W unknown) CON (unknown) (no (unknown) (unknown) Patient: (units (unkno wn) date) Ronny Fields unknown) E MR#: (unknown) (no (unknown) (unknown) Procedure: CT (units ( unknown) date) head/brain wo/w unknown) con (unknown) (no (unknown) (unknown) Signed (units (unkno wn) date) unknown) (unknown) (no (unknown) (unknown) Sinuses: (units (unkno wn) date) Visualized unknown) sinuses and mastoids are clear. (unknown) (no (unknown) (unknown) Skull and face: (units (unknown) date) Calvarium and unknown) visualized facial bones appear intact, without (unknown) (no (unknown) (unknown) TECHNIQUE: 4.5 (units (unknown) date) mm thick angled unknown) axial sections acquired from the foramen magnum (unknown) (no (unknown) (unknown) Ventricles (units (unk nown) date) unknown) (unknown) (no (unknown) (unknown) are normal in (units ( unknown) date) size and shape. unknown) (unknown) (no (unknown) (unknown) automated (units (unkn own) date) unknown) (unknown) (no (unknown) (unknown) coronal and (units (un known) date) unknown) (unknown) (no (unknown) (unknown) enhancement. (units (u nknown) date) Wells-white unknown) interface appears normal. Atrophy and chronic (unknown) (no (unknown) (unknown) exposure (units (unkno wn) date) control, unknown) adjustment of mA and/or kV according to patient size. (unknown) (no (unknown) (unknown) hemorrhage (units (unk nown) date) unknown) (unknown) (no (unknown) (unknown) intracranial (units (u nknown) date) unknown) (unknown) (no (unknown) (unknown) ischemic change. (units (unknown) date) unknown) (unknown) (no (unknown) (unknown) lesions. Right (units (unknown) date) intra-ocular lens unknown) replacement good position (unknown) (no (unknown) (unknown) or abnormal mass (units (unknown) date) lesion unknown) (unknown) (no (unknown) (unknown) sagittal (units (unkno wn) date) reformats. For unknown) radiation dose reduction, the following was used: (unknown) (no (unknown) (unknown) suspicious (units (unk nown) date) unknown) (unknown) (no (unknown) (unknown) to the (units (unkno wn) date) unknown) (unknown) (no (unknown) (unknown) vertex before (units ( unknown) date) and after the unknown) administration of intravenous contrast, with Social History No information. Vital Signs No information.
[2022-09-27 11:06] LABS: BASOPHILS % (AUTO) 0.6 %; EOSINOPHILS # (AUTO) 0.1 10^3/uL (0.0-0.7); EOSINOPHILS % (AUTO) 1.4 %; HCT - HEMATOCRIT 41.1 % (37.0-47.0); HGB - HEMOGLOBIN 12.9 g/dL (12.0-16.0); LYMPHOCYTES # (AUTO) 0.9 10^3/uL (1.5-3.5); LYMPHOCYTES % (AUTO) 17.8 %; MEAN CORPUSCULAR HEMOGLOBIN 29.2 pg (27.0-31.0); MEAN CORPUSCULAR HGB CONC 31.4 g/dL (32.0-36.0); MEAN PLATELET VOLUME 10.1 fL (7.9-10.8); MONOCYTES # (AUTO) 0.3 10^3/uL (0.0-1.0); MONOCYTES % (AUTO) 6.7 %; NEUTROPHILS # (AUTO) 3.8 10^3/uL (1.5-6.6); NEUTROPHILS % (AUTO) 73.3 %; PLT - PLATELET COUNT 169 10^3/uL (130-450); RED BLOOD COUNT 4.42 10^6/uL (4.20-5.40); RED CELL DISTRIBUTION WIDTH 12.5 % (12.0-15.0); WHITE BLOOD COUNT 5.1 x10^3/uL (4.8-10.8)
[2022-09-27 11:21] LABS: ALBUMIN 3.4 g/dL (3.2-5.5); ALBUMIN/GLOBULIN RATIO 1.3 (1.0-2.2); ALKALINE PHOSPHATASE 52 IU/L (42-121); ALT ALANINE AMINOTRANSFERASE < 10 IU/L (10-60); AST ASPARTATE AMINOTRANSFERASE 16 IU/L (10-42); BILIRUBIN,TOTAL 0.8 mg/dL (0.2-1.0); BUN - BLOOD UREA NITROGEN 31 mg/dL (6-20); CALCIUM 8.4 mg/dL (8.5-10.3); CARBON DIOXIDE - CO2 20 mmol/L (21-32); CHLORIDE 112 mmol/L (101-111); CREATININE 1.3 mg/dL (0.4-1.0); GFR - MDRD 39 (>89); GLUCOSE 94 mg/dL (70-100); LIPASE 35 U/L (22-51); POTASSIUM 3.7 mmol/L (3.5-5.0); SODIUM 140 mmol/L (135-145); TOTAL PROTEIN 6.1 g/dL (6.7-8.2)
[2022-09-27] MEDS ORDERED: iohexoL-300 100 ML VIAL ONE (13:09)
--- NOTE | 2022-09-27 13:37 | CT Report ---
PROCEDURE: HEAD WO INDICATIONS: aloc TECHNIQUE: Noncontrast 4.5 mm thick angled axial sections acquired from the foramen magnum to the vertex. For r adiation dose reduction, the following was used: automated exposure control, adjustment of mA and/or kV according to patient size. COMPARISON: 08/06/2021 FINDINGS: Image quality: Excellent. CSF spaces: Basal cisterns are patent. No extra-axial fluid collections. Ventricles are normal in size and shape. Brain: No midline shift. No intracranial masses or hemorrhage. Wells-white matter interface is norm al. Age-related volume loss and small vessel ischemic change. Intracranial internal carotid artery c alcifications. Skull and face: Calvarium and visualized facial bones are intact, without suspicious lesions. Sinuses: Visualized sinuses and mastoids are clear. IMPRESSION: No evidence acute intracranial abnormality. Reviewed by: Dustin Ordaz MD on 09/27/2022 1:36 PM PST Approved by: Dustin Ordaz MD on 09/27/2022 1:36 PM PST Station ID: [id number]
[2022-09-27 15:17] LABS: BILIRUBIN,URINE NEGATIVE (NEGATIVE); GLUCOSE, URINE (UA) NEGATIVE (NEGATIVE); KETONES,URINE (UA) TRACE mg/dL (NEGATIVE); LEUKOCYTE ESTERASE, URINE NEGATIVE (NEGATIVE); NITRITE,URINE NEGATIVE (NEGATIVE); OCCULT BLOOD,URINE NEGATIVE (NEGATIVE); PROTEIN,URINE NEGATIVE (NEGATIVE); UROBILINOGEN,URINE 0.2 (NORMAL) E.U./dL (NORMAL)
[2022-09-27 15:19] LABS: CLARITY,URINE CLEAR (CLEAR)
--- NOTE | 2022-09-27 17:26 | ED Physician Documentation ---
History of Present Illness - Stated complaint Stated Complaint: UNRESPONSIVE - Chief complaint Chief Complaint: Cardiac - History obtained from History obtained from: Patient, Family, EMS - Additonal information Additional information: PT is brought to the ED by EMS for CC of ALOC. The pt had a cataract surgery last week, and has been laying in bed for the past 4 days since, per medics. The pt has not felt like eating or drinking, and has been mostly sleeping, so she has not had much to eat or drink since the surgery. The pt was somnolent and confused this morning when family went to check on her, and they became concerned. Pt is not on any narcotics, per medics. Her only new medication is a topical agent for her eyes. No fevers, vomiting, or diarrhea. No respiratory sx. Medics started IV fluids en-route, and pt has become more alert and conversant. She denies complaints currently, and states that she has just felt tired since the surgery. Review of Systems Ten Systems: 10 systems reviewed and negative Constitutional: reports: Fatigue Eyes: reports: Reviewed and negative Ears: reports: Reviewed and negative Nose: reports: Reviewed and negative Throat: reports: Reviewed and negative Cardiac: reports: Reviewed and negative Respiratory: reports: Reviewed and negative GI: reports: Reviewed and negative : reports: Reviewed and negative Skin: reports: Reviewed and negative Musculoskeletal: reports: Reviewed and negative Neurologic: reports: Reviewed and negative Psychiatric: reports: Reviewed and negative Endocrine: reports: Reviewed and negative Immunocompromised: reports: Reviewed and negative PD PAST MEDICAL HISTORY - Past Medical History Cardiovascular: Hypertension Respiratory: None Neuro: None Endocrine/Autoimmune: HyPOthyroidism GI: None SPORTS REPORTER: None : None HEENT: Chronic vision loss Psych: None Musculoskeletal: Osteoarthritis Derm: None - Past Surgical History Past Surgical History: Yes General: Colonoscopy Ortho: Knee replacement /SPORTS REPORTER: Tubal ligation HEENT: Cataracts, Other - Present Medications Home Medications: Ambulatory Orders Medication Instructions Recorded Confirmed Levothyroxine Sodium [Synthroid] 50 mcg PO DAILY 12/06/13 09/22/22 NIFEdipine [Procardia Xl] 30 mg PO ONCE 12/06/13 09/22/22 Simvastatin [Zocor] 20 mg PO QPM 12/06/13 09/22/22 - Allergies Allergies/Adverse Reactions: Allergies Allergy/AdvReac Type Severity Reaction Status Date / Time No Known Drug Allergies Allergy Verified 09/27/22 10:50 - Social History Does the pt smoke?: No Smoking Status: Never smoker Does the pt drink ETOH?: No Does the pt have substance abuse?: No - Immunizations Immunizations are current?: Yes - POLST Patient has POLST: No PD ED PE NORMAL - Vitals Vital signs reviewed: Yes - General General: No acute distress, Well developed/nourished, Other (Alert, oriented to self, month, and being in the hospital.) - HEENT HEENT: Atraumatic, Moist mucous membranes, Other (R eye normal; L eye hazy, injected, c/w recent surgery. Eye shield in place on arrival.) - Neck Neck: Supple, no meningeal sign - Cardiac Cardiac: RRR, No murmur, Strong equal pulses - Respiratory Respiratory: No respiratory distress, Clear bilaterally - Abdomen Abdomen: Soft, Non tender, Non distended - Derm Derm: Normal color, Warm and dry, No rash - Extremities Extremities: No deformity, No edema - Neuro Neuro: oil heaterman 2-12 intact, No motor deficit, No sensory deficit, Normal speech, Other (Alert, but mild confusion; otherwise intact) - Psych Psych: Normal mood, Normal affect Results - Vitals Vitals: Oxygen O2 Source Room air - EKG (time done) 1143 Rate: Rate (enter#) (56) Rhythm: NSR [place]: Normal Intervals: Normal DC QRS: Normal Ischemia: Normal ST segments, Non specific changes Compare to prior EKG: Old EKG unavailable Computer interpretation: Agree with computer - Labs Labs: Laboratory Tests 09/27/22 09/27/22 09/27/22 11:01 11:01 15:03 WBC 5.1 RBC 4.42 Hgb 12.9 Hct 41.1 MCV 93.0 MCH 29.2 MCHC 31.4 L RDW 12.5 Plt Count 169 MPV 10.1 Neut # (Auto) 3.8 Lymph # (Auto) 0.9 L [place] # (Auto) 0.3 Eos # (Auto) 0.1 Baso # (Auto) 0.0 Absolute Nucleated RBC 0.00 Nucleated RBC % 0.0 Sodium 140 Potassium 3.7 Chloride 112 H Carbon Dioxide 20 L Anion Gap 8.0 BUN 31 H Creatinine 1.3 H Estimated GFR (MDRD) 39 L Glucose 94 Calcium 8.4 L Total Bilirubin 0.8 AST 16 ALT < 10 L Alkaline Phosphatase 52 Total Protein 6.1 L Albumin 3.4 Globulin 2.7 Albumin/Globulin Ratio 1.3 Lipase 35 Urine Color YELLOW Urine Clarity CLEAR Urine pH 6.0 Ur Specific [place] 1.015 Urine Protein NEGATIVE Urine Glucose (UA) NEGATIVE Urine Ketones TRACE Urine Occult Blood NEGATIVE Urine Nitrite NEGATIVE Urine Bilirubin NEGATIVE Urine Urobilinogen 0.2 (NORMAL) Ur Leukocyte Esterase NEGATIVE Ur Microscopic Review NOT INDICATED Urine Culture Comments NOT INDICATED - Rads (name of study) head CT Radiology: Final report received, EMP read indepedently, See rad report (nad) PD MEDICAL DECISION MAKING - ED course Complexity details: reviewed results, re-evaluated patient, considered differential, d/w patient ED course: The pt was hydrated with 2 L of NS, and worked up with labs, EKG, UA, and head CT. She improved drastically while in the ED. I d/w pt and her daughter that it is very important for her to stay hydrated, with the specific goal of about 8 cups of water per day. We have also discussed that she also needs to be getting out of bed every day and walking around, to avoid becoming deconditioned. Pt and daughter both express understanding. Pt is stable for d/c home. We have discussed the usual indications for return. Departure - Departure Disposition: 01 Home, Self Care Clinical Impression: Dehydration, Physical deconditioning Altered mental status Qualifiers: Altered mental status type: unspecified Qualified Code(s): R41.82 - Altered mental status, unspecified Condition: Stable Instructions: ED Dehydration Comments: The labs, EKG, and CT scan all look good. Urinalysis does not show any evidence of infection. Your mental status has improved greatly while in the emergency department. Most of your symptoms are most likely due to dehydration and to laying in bed for days without doing much activity. It is very important that you get up every day and walk around and get some fresh air, as you will become physically and mentally deconditioned if you continue laying in bed and not eating and drinking enough. Please be sure to drink at least 8 cups of water each day. Make an appointment to follow-up with your primary care physician within the next week or 2 for any further concerns. Discharge Date/Time: 09/27/22 17:40
[2022-09-27 17:38] VITALS: BP 140/65
== END 2022-09-27 17:40 | disposition home or self-care (01) ==
LOC: EDUNIT# → ED 10:36
DX: E86.0 Dehydration (principal); R41.82 Altered mental status, unspecified; R53.83 Other fatigue; Z98.42 Cataract extraction status, left eye; I10 Essential (primary) hypertension
CPT/HCPCS: 36415; 80053; 81001; 81003; 83690; 85025; 87086; 93005; 96360; 96361; 99284

== ENCOUNTER 2022-09-28 05:01 | Outpatient (CLI) | payer MEDICARE, OTHER | END 2022-09-28 05:02 | disposition EMS.NT | LOC: EMS 05:01 | DX: R46.89 Other symptoms and signs involving appearance and behavior (principal) ==

== ENCOUNTER 2022-10-27 06:17 | Day surgery (SDC) | payer MEDICARE, OTHER ==
[2022-10-27] MEDS ORDERED: KETOROLAC 0.45% OPHTH DROPS ONE (06:20)
[2022-10-27] MEDS ORDERED: prednisoLONE 1% OPHTH DROPS 75 DROPS/5 ML BOTTLE ONE (06:21)
[2022-10-27] MEDS ORDERED: PROPARACAINE 0.5% OPHTH DROPS 15 ML ONE (06:26)
[2022-10-27] MEDS ORDERED: LACTATED RINGERS 1,000 ML IV ONE (06:30)
--- NOTE | 2022-10-27 06:59 | ANESTHESIA ---
Pre-Anesthesia VS, & Labs - Diagnosis L retained lens fragment - Procedure removal of same Vital Signs: Temp Pulse Resp BP Pulse Ox O2 Flow Rate 37.0 C 78 10 L 128/77 96 10/27/22 06:30 10/27/22 06:30 10/27/22 06:30 10/27/22 06:30 10/27/22 06:30 Height: 5 ft 1 in Weight (kg): 42 kg Body Mass Index: 17.4 BMI Classification: Underweight - NPO >8 hours - Is Patient ?: No - Lab Results Lab results reviewed: Yes Home Medications and Allergies Levothyroxine Sodium [Synthroid] 50 mcg PO DAILY 12/06/13 NIFEdipine [Procardia Xl] 30 mg PO ONCE 12/06/13 Simvastatin [Zocor] 20 mg PO QPM 12/06/13 Allergies/Adverse Reactions: Allergies Allergy/AdvReac Type Severity Reaction Status Date / Time No Known Drug Allergies Allergy Verified 09/27/22 10:50 Anes History & Medical History - Anesthetic History Anesthesia Complications: reports: No previous complications Family history of Anesthesia Complications: Denies Family history of Malignant Hyperthermia: Denies - Medical History Cardiovascular: reports: Hypertension Pulmonary: reports: None Gastrointestinal: reports: None Urinary: reports: None Neuro: reports: None Musculoskeletal: reports: Osteoarthritis Endocrine/Autoimmune: reports: HyPOthyroidism Blood Disorders: reports: None Skin: reports: None Smoking Status: Never smoker - Surgical History General: reports: Colonoscopy Eyes Ears Nose Throat (EENT): reports: Cataracts, Other Gynecologic: reports: Tubal ligation Orthopedic: reports: Knee replacement Exam General: Alert Dental: WNL Mouth Openin Fingerbreadth Neck Mobility: Normal Mallampati classification: II Thyromental Distance: 4-6 cm Respiratory: Normal breath sounds, No respiratory distress Cardiovascular: Regular rate Mental/Cognitive Status: Alert/Oriented X3, Normal for patient Cognitive Status: Within normal limits Plan Anesthesia Type: MAC Consent for Procedure(s) Verified and Reviewed: Yes Code Status: Attempt Resuscitation ASA classification: 2-Mild systemic disease Is this case an emergency?: No
[2022-10-27] MEDS ORDERED: EPINEPHrine 1 MG/ML AMP ONE (07:06)
[2022-10-27] MEDS ORDERED: TRIAMCIN/MOXIFLOX OPHTHALMIC 0.6 ML VIAL IO ONE ×3 (07:06→07:53)
[2022-10-27] MEDS ORDERED: TIMOLOL 0.5% OPHTH DROPS ONE ×2 (07:06→07:08)
[2022-10-27] MEDS ORDERED: BSS/LIDOCAINE/EPINEPHRINE 1 ML VIAL ONE (07:06)
[2022-10-27] MEDS ORDERED: VANCOMYCIN OPHTH (TOPICAL) 10 MG/ML SYRINGE ONE (07:06)
[2022-10-27] MEDS ORDERED: BRIMONIDINE 0.2% OPHTH DROPS 5 ML ONE (07:06)
[2022-10-27] MEDS ORDERED: MIDAZOLAM 2 MG/2 ML VIAL ONE (07:15)
[2022-10-27] MEDS ORDERED: PROPOFOL 200 MG/20 ML VIAL IVP ONE ×2 (07:45→07:56)
[2022-10-27] MEDS ORDERED: EPINEPHrine 1 MG/ML AMP IR ONE (07:52)
[2022-10-27] MEDS ORDERED: BRIMONIDINE 0.2% OPHTH DROPS 5 ML OPTH ONE (07:52)
[2022-10-27] MEDS ORDERED: TIMOLOL 0.5% OPHTH DROPS OPTH ONE (07:52)
[2022-10-27] MEDS ORDERED: BSS/LIDOCAINE/EPINEPHRINE 1 ML SYRINGE IO ONE (07:53)
[2022-10-27] MEDS ORDERED: PROPARACAINE 0.5% OPHTH DROPS 15 ML LEFTEYE ONE (07:53)
[2022-10-27] MEDS ORDERED: VANCOMYCIN OPHTH (TOPICAL) 10 MG/ML SYRINGE TOP ONE (07:55)
[2022-10-27] MEDS ORDERED: LACTATED RINGERS 600 ML IV ONE (08:11)
--- NOTE | 2022-10-27 08:13 | OPERATIVE REPORT ---
Operative Report - Other Other Information/Narrative: Date of Surgery: 10/27/22 Preop Dx: Retained nuclear lens fragment left eye. Cataract surgery was performed in the left eye on [id number]. Postop Dx: Same Procedure: Aspiration of retained lens fragment left eye Surgeon: Dr. Wild Pendleton Anesthesia: IV General Anesthesia using Propofol Complications: None Operative Indications: This is a 82-year-old F with a retained lens fragment in the left eye since cataract surgery in the left eye [id number]. Indications for s nahomi were: - Overall decrease in vision - Recalcitrant corneal edema and intraocular inflammation The patient was consented at length concerning the risks and benefits of cataract surgery after which the patient expressed a desire to proceed with surgery. Operative Procedure: The patient was taken into OR#3 and placed under monitored anesthesia care and subsequently IV general due to patient confusion and movement. A surgical time-out was conducted confirming correct patient, correct procedure, and correct surgical site. The patient was given topical anesthesia and then prepped and draped in the usual sterile fashion. The eye was entered at the 6 and 3 oclock positions. Intracameral Shugarcaine was injected into the anterior chamber. The retained lens fragtment was nucleus phacoemulsified. The wounds were hydrated and the eye inflated to physiologic pressure using balanced salt solution. Approximately 0.25ml of a mixture of triamcinolone and moxifloxacin was injected trans-sclerally into the vitreous in the inferotemporal quadrant using a 30 gauge cannula. An additional 0.55ml of a mixture of triamcinolone and moxifloxacin was injected subconjunctivally in the superior quadrant for infection and inflammation prophylaxis. Wound integrity was checked with Weck-Dimple sponges. The patient was taken from the operating room in good condition and given post-op instructions.
[2022-10-27] MEDS: FLUMAZENIL 0.1 MG/1 ML 5 ML MDV IVP ONE ×5 (08:50→09:05)
--- NOTE | 2022-10-27 09:23 | ANESTHESIA POST OP EVALUATION ---
Anesthesia Post Eval - Post Anesthesia Eval Vitals: Last Vital Signs Temp 36.4 C L 10/27/22 08:45 Pulse 75 10/27/22 08:45 Resp 15 10/27/22 08:45 BP 158/80 H 10/27/22 08:45 Pulse Ox 100 10/27/22 08:45 O2 Flow Rate CV Function Including HR & BP: Stable Pain Control: Satisfactory Nausea & Vomiting: Negative Mental Status: Baseline Respiratory Status: Airway Patent Hydration Status: Satisfactory Anesthesia Complications: None (Patient not responding to verbal commands after IVGA. Romazicon 0.2mg IV per BUILDING CONSULTANT x2. Pt responds to commands and questions. VSS. Will continue to monitor to discharge.)
[2022-10-27 10:30] VITALS: BP 138/70
== END 2022-10-27 06:18 | disposition home or self-care (01) ==
LOC: SDS 06:17
PROVIDERS: ATTEND Ophthalmology
PROC: 08DK3ZZ Extraction of Left Lens, Percutaneous Approach (ICD-10-PCS; principal; 2022-10-27 07:30)
DX: H59.022 Cataract (lens) fragments in eye following cataract surgery, left eye (principal); I11.9 Hypertensive heart disease without heart failure
CPT/HCPCS: 66850; A9270; J3490; J7120

== ENCOUNTER 2022-11-01 08:34 | Outpatient (CLI) | payer MEDICARE, OTHER | END 2022-11-01 08:35 | disposition EMS.NT | LOC: EMS 08:34 | DX: R11.10 Vomiting, unspecified (principal) ==

== ENCOUNTER 2023-11-16 16:41 | Outpatient (CLI) | payer MEDICARE, OTHER | END 2023-11-16 23:59 | disposition critical access hospital (66) | LOC: EMS 16:41 | DX: R41.82 Altered mental status, unspecified (principal); R11.10 Vomiting, unspecified; R15.9 Full incontinence of feces | CPT/HCPCS: A0425; A0427 ==

== ENCOUNTER 2023-11-16 17:10 | Emergency (ER) | payer MEDICARE, OTHER ==
--- NOTE | 2023-11-16 18:03 | ED Physician Documentation ---
PD HPI HEAD INJURY - Stated complaint Stated Complaint: GLF/VOMITING - Chief complaint Chief Complaint: Neuro - History obtained from History obtained from: Family, EMS - Additional information Additional information: 83-year-old female with advanced dementia presents to the emergency department via EMS after experiencing ground-level fall unwitnessed in the shower. Patient lives with her son who is her full-time caregiver who is at bedside. He reports that he heard a loud thump in the bathroom he yelled into the bathroom to see if she was okay and she said she was okay after he got her out of the shower and into the chair patient had an episode of emesis and what patient send describes as increased lethargy. Patient is alert not oriented in the emergency department upon arrival. She does not recall the event but this is normal for patient's baseline dementia. Patient's son does report that she is DO NOT RESUSCITATE, he is her current power of trade mark attorney, but patient's son would like to pursue labs and imaging. PD PAST MEDICAL HISTORY - Past Medical History Cardiovascular: Hypertension Respiratory: None Neuro: Dementia Endocrine/Autoimmune: HyPOthyroidism GI: None ABALONE PROCESSOR: None : None HEENT: Chronic vision loss Psych: None Musculoskeletal: Osteoarthritis Derm: None - Past Surgical History Past Surgical History: Yes General: Colonoscopy Ortho: Knee replacement /ABALONE PROCESSOR: Tubal ligation HEENT: Cataracts, Other - Present Medications Home Medications: Ambulatory Orders Medication Instructions Recorded Confirmed Levothyroxine Sodium [Synthroid] 50 mcg PO DAILY 12/06/13 09/22/22 NIFEdipine [Procardia Xl] 30 mg PO ONCE 12/06/13 09/22/22 Simvastatin [Zocor] 20 mg PO QPM 12/06/13 09/22/22 Nitrofurantoin [Macrobid] 100 mg PO BID 5 Days #9 cap 11/16/23 - Allergies Allergies/Adverse Reactions: Allergies Allergy/AdvReac Type Severity Reaction Status Date / Time No Known Drug Allergies Allergy Verified 11/16/23 18:05 - Social History Does the pt smoke?: No Smoking Status: Never smoker Does the pt drink ETOH?: No Does the pt have substance abuse?: No - Immunizations Immunizations are current?: Yes - POLST Patient has POLST: No PD ED PE NORMAL - Vitals Vital signs reviewed: Yes - General General: No acute distress, Well developed/nourished, Other (Not oriented, pt is at baseline per son.) - HEENT HEENT: Atraumatic, PERRL, EOMI - Neck Neck: No bony TTP, No JVD, No bruit - Cardiac Cardiac: RRR, Strong equal pulses, Other (bounding heart tones) - Respiratory Respiratory: No respiratory distress, Clear bilaterally - Abdomen Abdomen: Normal bowel sounds, Non tender - Back Back: No CVA TTP, No spinal TTP - Derm Derm: Normal color, Warm and dry - Extremities Extremities: No deformity, No tenderness to palpate, Normal ROM s pain, No edema, No calf tenderness / cord - Neuro Neuro: No motor deficit, Normal speech Eye Opening: Spontaneous Motor: Obeys Commands Verbal: Confused GCS Score: 14 Results - Vitals Vitals: Vital Signs - 24 hr 11/16/23 11/16/23 11/16/23 17:21 18:05 18:30 Temperature 36.5 C Heart Rate 80 76 74 Respiratory 19 15 19 Rate Blood Pressure 125/76 144/73 H 139/66 H O2 Saturation 99 97 93 11/16/23 11/16/23 11/16/23 19:00 20:00 21:00 Temperature Heart Rate 73 85 78 Respiratory 15 19 15 Rate Blood Pressure 148/72 H 146/78 H 130/78 O2 Saturation 96 99 94 11/16/23 21:26 Temperature Heart Rate 78 Respiratory 15 Rate Blood Pressure 130/76 O2 Saturation 95 Oxygen O2 Source Room air - Labs Labs: Laboratory Tests 11/16/23 11/16/23 11/16/23 17:56 17:56 19:55 WBC 7.9 RBC 4.67 Hgb 13.5 Hct 42.9 MCV 91.9 MCH 28.9 MCHC 31.5 L RDW 11.9 L Plt Count 197 MPV 10.0 Neut # (Auto) 6.6 Lymph # (Auto) 0.8 L [place] # (Auto) 0.4 Eos # (Auto) 0.1 Baso # (Auto) 0.0 Absolute Nucleated RBC 0.00 Nucleated RBC % 0.0 Sodium 139 Potassium 3.4 L Chloride 106 Carbon Dioxide 29 Anion Gap 4.0 L BUN 21 H Creatinine 0.8 Estimated GFR (MDRD) 69 L Glucose 97 Calcium 9.0 Magnesium 2.0 Total Bilirubin 0.6 AST 15 ALT 4 L Alkaline Phosphatase 53 Total Protein 6.4 Albumin 3.8 Globulin 2.6 Albumin/Globulin Ratio 1.5 Urine Color YELLOW Urine Clarity HAZY Urine pH 7.0 Ur Specific [place] 1.015 Urine Protein NEGATIVE Urine Glucose (UA) NEGATIVE Urine Ketones NEGATIVE Urine Occult Blood SMALL H Urine Nitrite NEGATIVE Urine Bilirubin NEGATIVE Urine Urobilinogen 1 (NORMAL) Ur Leukocyte Esterase MODERATE H Urine RBC TNTC H Urine WBC >25 H Urine WBC Clumps PRESENT Ur Squamous Epith Cells NONE SEEN Urine Bacteria Many H Ur Microscopic Review INDICATED Urine Culture Comments INDICATED - Rads (name of study) head CT Relevant Findings:: Final report received, EMP independent interpretation of test (no intracranial abnormalities) cervical C-spine Relevant Findings:: Final report received, EMP independent interpretation of test (No cervical spine fractures, chronic degenerative changes, she does have a stable right upper lobe nodule) PD Medical Decision Making - ED course ED course: 83-year-old female here with original concerns of possible ground-level fall in shower followed by nausea vomiting. Patient son is at bedside now and able to provide a little bit more information. He reports that he heard a loud thump in the shower which is normal for his mom given her advanced dementia as she tends to be loud in the shower and he says that he did not hear any sounds out of the norm. After the nausea vomiting patient told her son "I am not okay" and he then called 911. It is unsure if pt had an actual fall or not, she had no head trauma, no LOC that the son is aware of and there are no abrasions or hematomas to the head. CT w/o con complete and no intra cranial hemorrhages visualized, C-spine also does not show any acute abnormalities. UA does have positive leukocytes as well as bacteria. Will start her on Macrobid per patient send this is recurrent for the patient to have UTIs. I was not able to visualize any sort of trauma or abrasions elsewhere in the body indicative of the patient following or not but happy that the patient is stable and safe for discharge at this time told to follow-up with primary care provider and prescription sent to patient's preferred pharmacy. There was a 6 mm right upper lobe nodule visualized on CT scan and this was informed to the patient's family member to have this followed up outpatient with nonemergent CT scan with primary care provider. Departure - Departure Disposition: 01 Home, Self Care Clinical Impression: UTI (urinary tract infection) Qualifiers: Urinary tract infection type: acute cystitis Hematuria presence: with hematuria Qualified Code(s): N30.01 - Acute cystitis with hematuria Condition: Good Instructions: ED UTI Cystitis Female Prescriptions: Nitrofurantoin [Macrobid] 100 mg PO BID 5 Days #9 cap Comments: Thank you for trusting us with your care as we discussed we have completed a head CT as well as a cervical CT which did not reveal any acute abnormalities or findings. We did however find that you do have a urinary tract infection. We have started you on an antibiotic called Macrobid here in the emergency department and sent this prescription to [facility] in [place] for you to cherry picker operator tomorrow. You will take this twice a day until you run out it should be about a total of 5 days. Please follow-up with your primary care provider if you are concerned about recurrent urinary tract infections. We have sent your urine for culture as it can take 2 to 3 days for these to result we will call you if you need to change any antibiotics based on these urine cultures. Please come back to the emergency department if you are starting to experience any fevers, chills, worsening altered mental status, worsening confusion, or any other concerning symptoms. Incidentally of note we did find on your CT that you do have a Stable 6 mm right upper lobe nodule since 03/13/2022. Consider nonemergent follow-up CT, This is something that your primary care provider can order outpatient. Forms: PCP List Discharge Date/Time: 11/16/23 21:15
[2023-11-16 18:05] LABS: BASOPHILS % (AUTO) 0.5 %; EOSINOPHILS # (AUTO) 0.1 10^3/uL (0.0-0.7); HCT - HEMATOCRIT 42.9 % (37.0-47.0); HGB - HEMOGLOBIN 13.5 g/dL (12.0-16.0); LYMPHOCYTES # (AUTO) 0.8 10^3/uL (1.5-3.5); MEAN CORPUSCULAR HEMOGLOBIN 28.9 pg (27.0-31.0); MEAN CORPUSCULAR HGB CONC 31.5 g/dL (32.0-36.0); MEAN CORPUSCULAR VOLUME 91.9 fL (81.0-99.0); MONOCYTES # (AUTO) 0.4 10^3/uL (0.0-1.0); MONOCYTES % (AUTO) 5.1 %; NEUTROPHILS # (AUTO) 6.6 10^3/uL (1.5-6.6); PLT - PLATELET COUNT 197 10^3/uL (130-450); RED BLOOD COUNT 4.67 10^6/uL (4.20-5.40); RED CELL DISTRIBUTION WIDTH 11.9 % (12.0-15.0); WHITE BLOOD COUNT 7.9 x10^3/uL (4.8-10.8)
[2023-11-16 18:21] LABS: ALBUMIN 3.8 g/dL (3.2-5.5); ALBUMIN/GLOBULIN RATIO 1.5 (1.0-2.2); BILIRUBIN,TOTAL 0.6 mg/dL (0.2-1.0); CREATININE 0.8 mg/dL (0.6-1.3); POTASSIUM 3.4 mmol/L (3.5-4.5); TOTAL PROTEIN 6.4 g/dL (6.4-8.9)
--- NOTE | 2023-11-16 18:25 | CT Report ---
PROCEDURE: Head WO INDICATIONS: AMS, GLF TECHNIQUE: Noncontrast 4.5 mm thick angled axial sections acquired from the foramen magnum to the vertex. For r adiation dose reduction, the following was used: automated exposure control, adjustment of mA and/or kV according to patient size. COMPARISON: Head CT, 09/27/2022. FINDINGS: Image quality: Excellent. CSF spaces: Basal cisterns are patent. No extra-axial fluid collections. Ventricles are normal in size and shape. Brain: No midline shift. No intracranial masses or hemorrhage. Moderate cerebral volume loss and pe riventricular matter chronic small vessel treatment changes. Wells-white matter interface is normal. Skull and face: Calvarium and visualized facial bones are intact, without suspicious lesions. Sinuses: Visualized sinuses and mastoids are clear. IMPRESSION: No acute intracranial pathology. Reviewed by: Tera Ballesteros MD on 11/16/2023 6:24 PM PST Approved by: Tera Ballesteros MD on 11/16/2023 6:24 PM PST Station ID: [id number]
--- NOTE | 2023-11-16 18:30 | CT Report ---
PROCEDURE: Cervical Spine WO INDICATIONS: AMS, GLF TECHNIQUE: Noncontrast 3 mm thick sections acquired from the skull base to the T4 level. Sagittal and coronal r eformats were then constructed. For radiation dose reduction, the following was used: automated exp osure control, adjustment of mA and/or kV according to patient size. COMPARISON: CT chest, 03/13/2022. FINDINGS: Image quality: Excellent. Bones: No fractures or dislocations. Mild degenerative disc disease and moderate facet arthropathy i n cervical spine. Grade 1 anterior listhesis of C4 on C5. Moderate atlantoaxial joint degeneration. Visualized superior ribs are intact. Soft tissues: Prevertebral soft tissues are normal in thickness. No paravertebral hematomas. No ap ical pneumothoraces. There is a 6 mm nodule in the right upper lobe IMPRESSION: 1. No cervical spine fractures. 2. Degenerative changes in cervical spine. 3. Stable 6 mm right upper lobe nodule since 03/13/2022. Consider nonemergent follow-up CT. Please see enclosed follow-up recommendation. Fleischner Society criteria for SOLID lung nodule followup. Nodule size (mm)Low-risk patientHigh-risk patient "d4No follow-up neededFollow-up at 12 mo; if no change, no further follow-up >8-6Hveltc-tm CT at 12 mo; if no change, no further follow-up needed.Initial follow-up CT at 6-12 mo, then 18-24 mo if no change. >6-8Initial follow-up CT at 6-12 mo, then 18-24 mo if no change. Initial follow-up CT at 3-6 mo, then 9-12 mo and 24 mo if no change. >8Follow-up CT at 3, 9, 24 mo. Or PET and/or biopsy.Same as for low-risk pts. Reviewed by: Tera Ballesteros MD on 11/16/2023 6:28 PM PST Approved by: Tera Ballesteros MD on 11/16/2023 6:28 PM PST Station ID: [id number]
[2023-11-16 20:06] LABS: BILIRUBIN,URINE NEGATIVE (NEGATIVE); GLUCOSE, URINE (UA) NEGATIVE (NEGATIVE); KETONES,URINE (UA) NEGATIVE (NEGATIVE); LEUKOCYTE ESTERASE, URINE MODERATE (NEGATIVE); NITRITE,URINE NEGATIVE (NEGATIVE); OCCULT BLOOD,URINE SMALL (NEGATIVE); PROTEIN,URINE NEGATIVE (NEGATIVE); UROBILINOGEN,URINE 1 (NORMAL) E.U./dL (NORMAL)
[2023-11-16 20:11] LABS: CLARITY,URINE HAZY (CLEAR)
[2023-11-16 20:19] LABS: WBC CLUMPS,URINE PRESENT; WBC,URINE >25 /HPF (0-5)
[2023-11-16 20:20] LABS: BACTERIA,URINE Many /HPF (None Seen); RBC,URINE TNTC /HPF (0-5); SQUAMOUS EPITHELIAL CELL,UR NONE SEEN (<= Few)
[2023-11-16] MEDS: NITROFURANTOIN MACRO 100 MG CAPSULE PO STA (21:06)
[2023-11-16 21:34] VITALS: BP 130/76; O2SAT 95
== END 2023-11-16 21:15 | disposition home or self-care (01) ==
LOC: EDUNIT# → ED 17:10
DX: N30.01 Acute cystitis with hematuria (principal); B96.20 Unspecified Escherichia coli [E. coli] as the cause of diseases classified elsewhere; I10 Essential (primary) hypertension; E03.9 Hypothyroidism, unspecified; F03.90 Unspecified dementia, unspecified severity, without behavioral disturbance, psychotic disturbance, mood disturbance, and anxiety; Z66 Do not resuscitate; Z79.899 Other long term (current) drug therapy
CPT/HCPCS: 36415; 70450; 72125; 80053; 81001; 83735; 85025; 87086; 87181; 99284; A9270; 81003

== ENCOUNTER 2023-12-17 13:56 | Outpatient (CLI) | payer MEDICARE, OTHER | END 2023-12-17 13:57 | disposition critical access hospital (66) | LOC: EMS 13:56 | DX: R41.82 Altered mental status, unspecified (principal); R11.0 Nausea; S51.012A Laceration without foreign body of left elbow, initial encounter; W10.8XXA Fall (on) (from) other stairs and steps, initial encounter; Y92.008 Other place in unspecified non-institutional (private) residence as the place of occurrence of the external cause; G30.9 Alzheimer's disease, unspecified; F02.80 Dementia in other diseases classified elsewhere, unspecified severity, without behavioral disturbance, psychotic disturbance, mood disturbance, and anxiety | CPT/HCPCS: A0425; A0427 ==

== ENCOUNTER 2023-12-17 14:21 | Emergency (ER) | payer MEDICARE, OTHER ==
[2023-12-17 14:35] LABS: BASOPHILS # (AUTO) 0.1 10^3/uL (0.0-0.1); BASOPHILS % (AUTO) 0.7 %; EOSINOPHILS # (AUTO) 0.1 10^3/uL (0.0-0.7); EOSINOPHILS % (AUTO) 0.8 %; HCT - HEMATOCRIT 41.7 % (37.0-47.0); HGB - HEMOGLOBIN 13.3 g/dL (12.0-16.0); LYMPHOCYTES # (AUTO) 1.6 10^3/uL (1.5-3.5); LYMPHOCYTES % (AUTO) 22.8 %; MEAN CORPUSCULAR HEMOGLOBIN 28.5 pg (27.0-31.0); MEAN CORPUSCULAR HGB CONC 31.9 g/dL (32.0-36.0); MEAN CORPUSCULAR VOLUME 89.5 fL (81.0-99.0); MEAN PLATELET VOLUME 9.8 fL (7.9-10.8); MONOCYTES # (AUTO) 0.5 10^3/uL (0.0-1.0); MONOCYTES % (AUTO) 6.6 %; NEUTROPHILS # (AUTO) 4.8 10^3/uL (1.5-6.6); NEUTROPHILS % (AUTO) 67.7 %; PLT - PLATELET COUNT 212 10^3/uL (130-450); RED BLOOD COUNT 4.66 10^6/uL (4.20-5.40); RED CELL DISTRIBUTION WIDTH 12.1 % (12.0-15.0); WHITE BLOOD COUNT 7.1 x10^3/uL (4.8-10.8)
--- NOTE | 2023-12-17 14:41 | ED Physician Documentation ---
History of Present Illness - Stated complaint Stated Complaint: FALL - Chief complaint Chief Complaint: Trauma Hd/Nk - History obtained from History obtained from: Patient, Family, EMS - History of Present Illness Pain level max: 0 Pain level now: 0 - Additonal information Additional information: Patient is an 83-year-old female with dementia who lives at home with her son. EMS reports that her son heard a "thud". He found her at the bottom of the stairs. Unknown loss of consciousness but was conscious when the son arrived. Patient has no complaints. She does not recall the incident. She is reportedly not on any blood thinners. No vomiting. No seizure activity. Placed on a backboard by EMS with a blanket for c-collar support Review of Systems Unable to obtain: Dementia PD PAST MEDICAL HISTORY - Past Medical History Cardiovascular: Hypertension Respiratory: None Neuro: Dementia Endocrine/Autoimmune: HyPOthyroidism GI: None ELECTION ASSISTANT: None : None HEENT: Chronic vision loss Psych: None Musculoskeletal: Osteoarthritis Derm: None - Past Surgical History Past Surgical History: Yes General: Colonoscopy Ortho: Knee replacement /ELECTION ASSISTANT: Tubal ligation HEENT: Cataracts, Other - Present Medications Home Medications: Ambulatory Orders Medication Instructions Recorded Confirmed Levothyroxine Sodium [Synthroid] 50 mcg PO DAILY 12/06/13 09/22/22 NIFEdipine [Procardia Xl] 30 mg PO ONCE 12/06/13 09/22/22 Simvastatin [Zocor] 20 mg PO QPM 12/06/13 09/22/22 Nitrofurantoin [Macrobid] 100 mg PO BID 5 Days #9 cap 11/16/23 - Allergies Allergies/Adverse Reactions: Allergies Allergy/AdvReac Type Severity Reaction Status Date / Time No Known Drug Allergies Allergy Verified 11/16/23 18:05 - Social History Does the pt smoke?: No Smoking Status: Never smoker Does the pt drink ETOH?: No Does the pt have substance abuse?: No - Immunizations Immunizations are current?: Yes - POLST Patient has POLST: No PD ED PE NORMAL - Vitals Vital signs reviewed: Yes - General General: No acute distress, Well developed/nourished, Other (Alert, pleasantly confused. Oriented to person.) - HEENT HEENT: Atraumatic (No scalp hematomas. No palpable skull fractures.), PERRL, EOMI, Ears normal, Moist mucous membranes - Neck Neck: Supple, no meningeal sign, No bony TTP - Cardiac Cardiac: RRR, Strong equal pulses - Respiratory Respiratory: No respiratory distress, Clear bilaterally - Abdomen Abdomen: Soft, Non tender, Non distended - Back Back: No spinal TTP (No step-off or deformity. No tenderness to palpation or percussion. No bruising on the back. No abrasions.) - Derm Derm: Warm and dry - Extremities Extremities: Other (Full range of motion of bilateral shoulders, elbows, wrists, ankles, knees and hips without any pain. Patient is moving all of her limbs and extremities without any difficulty. There is a small abrasion to the left elbow.) - Neuro Neuro: Other (Alert, pleasantly confused.) Eye Opening: Spontaneous Motor: Obeys Commands Verbal: Confused GCS Score: 14 Results - Vitals Vitals: Vital Signs - 24 hr 12/17/23 12/17/23 12/17/23 14:32 16:44 18:00 Temperature 36.7 C Heart Rate 85 88 74 Respiratory 16 16 16 Rate Blood Pressure 141/70 H 149/85 H O2 Saturation 98 97 98 Oxygen O2 Source Room air - Labs Labs: Laboratory Tests 12/17/23 12/17/23 14:30 14:30 WBC 7.1 RBC 4.66 Hgb 13.3 Hct 41.7 MCV 89.5 MCH 28.5 MCHC 31.9 L RDW 12.1 Plt Count 212 MPV 9.8 Neut # (Auto) 4.8 Lymph # (Auto) 1.6 [place] # (Auto) 0.5 Eos # (Auto) 0.1 Baso # (Auto) 0.1 Absolute Nucleated RBC 0.00 Nucleated RBC % 0.0 Sodium 137 Potassium 3.8 Chloride 104 Carbon Dioxide 24 Anion Gap 9.0 BUN 16 Creatinine 1.2 Estimated GFR (MDRD) 43 L Glucose 129 H Calcium 9.4 - Rads (name of study) Head CT Relevant Findings:: Final report received, See rad report Cervical spine CT Relevant Findings:: Final report received, See rad report Pelvis x-ray Relevant Findings:: Final report received, See rad report PD Medical Decision Making - ED course Complexity details: reviewed results, re-evaluated patient, considered differential, d/w patient, d/w family ED course: There are no acute findings on head CT, cervical spine CT or pelvis x-ray. Patient was given Tylenol and is ambulating well in the emergency department. No lacerations to repair. No evidence of acute traumatic injury otherwise. Patient is very well-appearing, nontoxic. Tolerating p.o. without difficulty. Daughter is at bedside and confirms patient was at her baseline. Family counseled regarding signs and symptoms for which I believe and urgent re- evaluation would be necessary. Family with good understanding of and agreement to plan and is comfortable going home at this time This document was made in part using voice recognition software. While efforts are made to proofread this document, sound alike and grammatical errors may occur. Departure - Departure Disposition: 01 Home, Self Care Clinical Impression: Fall Qualifiers: Encounter type: initial encounter Qualified Code(s): W19.XXXA - Unspecified fall, initial encounter Condition: Good Instructions: ED Mechanical Fall Follow-Up: Kenneth Cloud MD [Primary Care Provider] - Comments: Thankfully there are no findings on your CT scan such as fractures, bleeding inside the brain or other injuries. Please follow-up with your doctor for further care. Please return if you worsen. You can use Tylenol at home as needed for pain. Forms: PCP List Discharge Date/Time: 12/17/23 18:08
[2023-12-17 14:56] LABS: CALCIUM 9.4 mg/dL (8.5-10.3); CREATININE 1.2 mg/dL (0.6-1.3); POTASSIUM 3.8 mmol/L (3.5-4.5)
--- NOTE | 2023-12-17 16:13 | CT Report ---
PROCEDURE: CT brain without contrast INDICATIONS: fall, dementia TECHNIQUE: Helical axial CT of the brain was obtained without contrast and reformatted in multiple p lanes. Radiation dose reduction was achieved using automated exposure control or adjustment of mA and /or kV according to patient size. COMPARISON: 11/16/2023 FINDINGS: CSF spaces: Ventricles are appropriate in size and position. No hydrocephalus. Basal cisterns unre markable. Brain: No midline shift. No intracranial masses or hemorrhage. Wells-white matter interface is norm al. Moderate atrophy and multifocal white matter chronic ischemic change noted. Atherosclerotic vasc ular calcification noted in the cavernous segments of both internal carotid arteries. Skull and face: Calvarium and skull base are unremarkable without suspicious lesion. Sinuses: Visualized sinuses and mastoids are clear. IMPRESSION: Atrophy and chronic ischemic change without intracranial hemorrhage or mass effect Reviewed by: Isra Lam MD on 12/17/2023 3:12 PM AKST Approved by: Isra Lam MD on 12/17/2023 3:12 PM AKST Station ID: [id number]
--- NOTE | 2023-12-17 16:19 | CT Report ---
PROCEDURE: CT cervical spine without contrast INDICATIONS: fall, dementia TECHNIQUE: Helical axial CT of the cervical spine was obtained without contrast and reformatted in m ultiple planes. Radiation dose reduction was achieved utilizing automated exposure control or adjus tment of mA and/or kV according to patient size. COMPARISON: 11/16/2023 FINDINGS: Bones: Normal bone mineralization present. No evidence of fracture or lytic malalignment. Degenerativ e changes are stable from the prior Soft tissues: Prevertebral soft tissues are normal in thickness. No paravertebral hematomas. No ap ical pneumothoraces. IMPRESSION: Degenerative changes without fracture or traumatic malalignment. Stable 6 mm right upper lobe pulmona ry nodule Reviewed by: Isra Lam MD on 12/17/2023 3:18 PM AKST Approved by: Isra Lam MD on 12/17/2023 3:18 PM AKST Station ID: [id number]
[2023-12-17] MEDS: ACETAMINOPHEN 325 MG TABLET PO STA (16:59)
[2023-12-17 17:15] VITALS: BP 149/85
--- NOTE | 2023-12-17 18:14 | XRAY Report ---
PROCEDURE: Pelvis 1-2V INDICATIONS: pelvic pain s/p fall TECHNIQUE: 1 view(s) of the pelvis acquired. COMPARISON: None. FINDINGS: Bones: No fractures or dislocations. No suspicious bony lesions. Degenerative bilateral hip joint space narrowing with marginal osteophytes. Soft tissues: Visualized bowel gas pattern is normal. No suspicious soft tissue calcifications. IMPRESSION: Degenerative osteoarthritis without fracture Reviewed by: Isra Lam MD on 12/17/2023 5:13 PM AKST Approved by: Isra Lam MD on 12/17/2023 5:13 PM AKST Station ID: [id number]
[2023-12-17 18:16] VITALS: O2SAT 98
== END 2023-12-17 18:08 | disposition home or self-care (01) ==
LOC: EDBD → ED 14:21
DX: S09.90XA Unspecified injury of head, initial encounter (principal); W10.8XXA Fall (on) (from) other stairs and steps, initial encounter; Y92.098 Other place in other non-institutional residence as the place of occurrence of the external cause; I10 Essential (primary) hypertension; F03.90 Unspecified dementia, unspecified severity, without behavioral disturbance, psychotic disturbance, mood disturbance, and anxiety; E03.9 Hypothyroidism, unspecified; H54.7 Unspecified visual loss; M19.90 Unspecified osteoarthritis, unspecified site; Z79.899 Other long term (current) drug therapy
CPT/HCPCS: 36415; 70450; 72125; 72170; 80048; 85025; 99284; A9270

== ENCOUNTER 2023-12-20 18:47 | Emergency (ER) | payer MEDICARE, OTHER ==
[2023-12-20 19:06] VITALS: BP 142/69; O2SAT 97
[2023-12-20 20:16] LABS: BASOPHILS # (AUTO) 0.1 10^3/uL (0.0-0.1); BASOPHILS % (AUTO) 0.9 %; EOSINOPHILS # (AUTO) 0.1 10^3/uL (0.0-0.7); EOSINOPHILS % (AUTO) 1.5 %; HCT - HEMATOCRIT 41.8 % (37.0-47.0); HGB - HEMOGLOBIN 13.1 g/dL (12.0-16.0); LYMPHOCYTES # (AUTO) 1.1 10^3/uL (1.5-3.5); LYMPHOCYTES % (AUTO) 16.8 %; MEAN CORPUSCULAR HEMOGLOBIN 28.4 pg (27.0-31.0); MEAN CORPUSCULAR HGB CONC 31.3 g/dL (32.0-36.0); MEAN CORPUSCULAR VOLUME 90.5 fL (81.0-99.0); MEAN PLATELET VOLUME 9.8 fL (7.9-10.8); MONOCYTES # (AUTO) 0.6 10^3/uL (0.0-1.0); MONOCYTES % (AUTO) 9.7 %; NEUTROPHILS # (AUTO) 4.7 10^3/uL (1.5-6.6); NEUTROPHILS % (AUTO) 70.8 %; PLT - PLATELET COUNT 185 10^3/uL (130-450); RED BLOOD COUNT 4.62 10^6/uL (4.20-5.40); RED CELL DISTRIBUTION WIDTH 12.4 % (12.0-15.0); WHITE BLOOD COUNT 6.6 x10^3/uL (4.8-10.8)
[2023-12-20 20:29] LABS: ALBUMIN 4.2 g/dL (3.2-5.5); ALBUMIN/GLOBULIN RATIO 1.6 (1.0-2.2); BILIRUBIN,TOTAL 0.9 mg/dL (0.2-1.0); CALCIUM 9.5 mg/dL (8.5-10.3); POTASSIUM 4.1 mmol/L (3.5-4.5); TOTAL PROTEIN 6.9 g/dL (6.4-8.9)
--- NOTE | 2023-12-20 21:24 | ED Physician Documentation ---
History of Present Illness - Stated complaint Stated Complaint: FALL - Chief complaint Chief Complaint: General - History obtained from History obtained from: Family (Daughter) - Additonal information Additional information: Patient is an 83-year-old female with a history of dementia presenting for evaluation of an unwitnessed fall today. Patient was seen just a few days ago after a fall with negative workup including imaging. Since that time she has been having difficulty in sleeping and has been up a lot of the night. She has also had a decreased appetite. At times she has hallucinations. Daughter states that she stepped out of the house today to run some errands and son who is her caregiver was at home. She was in the living area and he heard her fall. They are unsure if she hit her head. She does not take a blood thinner.Patient is not able to provide any meaningful history due to her dementia.Patient is currently on an antibiotic for a UTI. Review of Systems Unable to obtain: Dementia PD PAST MEDICAL HISTORY - Past Medical History Cardiovascular: Hypertension Respiratory: None Neuro: Dementia Endocrine/Autoimmune: HyPOthyroidism GI: None E BUSINESS PROJECT MANAGER: None : None HEENT: Chronic vision loss Psych: None Musculoskeletal: Osteoarthritis Derm: None - Past Surgical History Past Surgical History: Yes General: Colonoscopy Ortho: Knee replacement /E BUSINESS PROJECT MANAGER: Tubal ligation HEENT: Cataracts, Other - Present Medications Home Medications: Ambulatory Orders Medication Instructions Recorded Confirmed Levothyroxine Sodium [Synthroid] 50 mcg PO DAILY 12/06/13 09/22/22 NIFEdipine [Procardia Xl] 30 mg PO ONCE 12/06/13 09/22/22 Nitrofurantoin [Macrobid] 100 mg PO BID 5 Days #9 cap 11/16/23 QUEtiapine [SEROquel] 25 mg PO QPM #14 tablet 12/20/23 - Allergies Allergies/Adverse Reactions: Allergies Allergy/AdvReac Type Severity Reaction Status Date / Time No Known Drug Allergies Allergy Verified 12/20/23 19:01 - Social History Does the pt smoke?: No Smoking Status: Never smoker Does the pt drink ETOH?: No Does the pt have substance abuse?: No - Immunizations Immunizations are current?: Yes - POLST Patient has POLST: No PD ED PE NORMAL - General General: No acute distress, Well developed/nourished. No: Alert and oriented X 3 (Alert and oriented to person only which per the daughter is her baseline. Pleasant.) - HEENT HEENT: Atraumatic, PERRL, EOMI, Moist mucous membranes, Pharynx benign - Neck Neck: Supple, no meningeal sign, No bony TTP - Cardiac Cardiac: RRR, Strong equal pulses - Respiratory Respiratory: No respiratory distress, Clear bilaterally - Abdomen Abdomen: Normal bowel sounds, Soft, Non tender, Non distended - Derm Derm: Warm and dry - Extremities Extremities: No deformity, No tenderness to palpate - Neuro Neuro: Alert and oriented X 3, No motor deficit, No sensory deficit, Normal sp eech Results - Vitals Vitals: Vital Signs - 24 hr 12/20/23 12/20/23 18:54 20:51 Temperature 36.4 C L Heart Rate 97 Respiratory 17 17 Rate Blood Pressure 142/69 H O2 Saturation 97 Oxygen O2 Source Room air - Labs Labs: Laboratory Tests 12/20/23 12/20/23 20:12 20:12 WBC 6.6 RBC 4.62 Hgb 13.1 Hct 41.8 MCV 90.5 MCH 28.4 MCHC 31.3 L RDW 12.4 Plt Count 185 MPV 9.8 Neut # (Auto) 4.7 Lymph # (Auto) 1.1 L [place] # (Auto) 0.6 Eos # (Auto) 0.1 Baso # (Auto) 0.1 Absolute Nucleated RBC 0.00 Nucleated RBC % 0.0 Sodium 138 Potassium 4.1 Chloride 104 Carbon Dioxide 25 Anion Gap 9.0 BUN 28 H Creatinine 1.0 Estimated GFR (MDRD) 53 L Glucose 115 H Calcium 9.5 Total Bilirubin 0.9 AST 24 ALT 8 L Alkaline Phosphatase 56 Total Protein 6.9 Albumin 4.2 Globulin 2.7 Albumin/Globulin Ratio 1.6 Lipase 25 PD Medical Decision Making - ED course Complexity details: reviewed results, re-evaluated patient, d/w patient, d/w family ED course: Patient is an 83-year-old female with a history of dementia presenting for evaluation after an unwitnessed fall. She is currently on antibiotics for UTI. She has no outward signs of injury and appears to be at her baseline. She does not take a blood thinner. She has had recent issues with sleeping and at times having some hallucinations. Here she does not appear to be hallucinating or acting erratic. CT head and cervical spine were obtained and reviewed without significant findings. CBC and chemistries were also reviewed and without significant abnormalities. Patient is ambulatory here. Discussed trial of Seroquel at home for sleep which daughter is agreeable to. Also counseled on need for close follow-up with PCP and concerning symptoms to return for. Departure - Departure Disposition: 01 Home, Self Care Clinical Impression: Fall at home, Dementia, Sleep disturbance Condition: Stable Instructions: ED Dementia Caregiver Support Follow-Up: Kenneth Cloud MD [Primary Care Provider] - Prescriptions: QUEtiapine [SEROquel] 25 mg PO QPM #14 tablet Comments: Ana CT scans do not show signs of any injury from her fall. Her electrolytes look normal. Please continue with her antibiotic for treatment of the urine infection and I would recommend close follow-up with her primary care provider. I have sent a prescription to [facility] for a medication called Seroquel for her to receive at night to see if this helps with her sleeping. Return to the ER with any worsening. Forms: PCP List Discharge Date/Time: 12/20/23 23:39
--- NOTE | 2023-12-20 22:31 | CT Report ---
PROCEDURE: Head WO INDICATIONS: fall/dementia TECHNIQUE: Noncontrast 4.5 mm thick angled axial sections acquired from the foramen magnum to the vertex. For r adiation dose reduction, the following was used: automated exposure control, adjustment of mA and/or kV according to patient size. COMPARISON: CT head 12/17/2023. FINDINGS: Image quality: Diagnostic1. CSF spaces: Basal cisterns are patent. No extra-axial fluid collections. Ventricles are normal in size and shape. Brain: No midline shift. No intracranial masses or hemorrhage. Wells-white matter interface is norm al. Skull and face: Calvarium and visualized facial bones are intact, without suspicious lesions. Sinuses: Visualized sinuses and mastoids are clear. Bilateral lens replacement. IMPRESSION: No acute intracranial process. Reviewed by: Gayatri Martinez MD on 12/20/2023 10:30 PM PST Approved by: Gayatri Martinez MD on 12/20/2023 10:30 PM PST Station ID: [id number]
--- NOTE | 2023-12-20 22:38 | CT Report ---
PROCEDURE: Cervical Spine WO INDICATIONS: fall/dementia TECHNIQUE: Noncontrast 3 mm thick sections acquired from the skull base to the T4 level. Sagittal and coronal r eformats were then constructed. For radiation dose reduction, the following was used: automated exp osure control, adjustment of mA and/or kV according to patient size. COMPARISON: CT cervical spine 12/17/2023, 11/16/2023., Chest angiogram 03/13/2022 FINDINGS: Image quality: Diagnostic. Bones: No fractures or dislocations. Visualized superior ribs are intact. Soft tissues: Prevertebral soft tissues are normal in thickness. No paravertebral hematomas. No ap ical pneumothoraces. Stable right upper lobe 6 mm solid pulmonary nodules since 03/13/2022. IMPRESSION: No acute, displaced fracture or traumatic subluxation. Stable right upper lobe 6 mm nodule since 03/13/2022. Reviewed by: Gayatri Martinez MD on 12/20/2023 10:36 PM PST Approved by: Gayatri Martinez MD on 12/20/2023 10:36 PM PST Station ID: [id number]
[2023-12-20] MEDS: QUEtiapine 25 MG TABLET PO STA (23:08)
== END 2023-12-20 23:39 | disposition home or self-care (01) ==
LOC: ED 18:47
DX: Z04.3 Encounter for examination and observation following other accident (principal); W19.XXXA Unspecified fall, initial encounter; Y92.009 Unspecified place in unspecified non-institutional (private) residence as the place of occurrence of the external cause; F03.90 Unspecified dementia, unspecified severity, without behavioral disturbance, psychotic disturbance, mood disturbance, and anxiety; G47.9 Sleep disorder, unspecified; I10 Essential (primary) hypertension; E03.9 Hypothyroidism, unspecified; Z79.899 Other long term (current) drug therapy
CPT/HCPCS: 36415; 70450; 72125; 80053; 83690; 85025; 99284; A9270

== ENCOUNTER 2024-01-23 14:56 | Outpatient (CLI) | payer MEDICARE, OTHER | END 2024-01-23 23:59 | disposition critical access hospital (66) | LOC: EMS 14:56 | DX: R55 Syncope and collapse (principal) | CPT/HCPCS: A0425; A0429 ==

== ENCOUNTER 2024-01-23 15:23 | Emergency (ER) | payer MEDICARE, OTHER ==
[2024-01-23 15:43] LABS: BASOPHILS % (AUTO) 0.7 %; EOSINOPHILS # (AUTO) 0.1 10^3/uL (0.0-0.7); EOSINOPHILS % (AUTO) 1.8 %; HCT - HEMATOCRIT 39.2 % (37.0-47.0); HGB - HEMOGLOBIN 12.4 g/dL (12.0-16.0); LYMPHOCYTES # (AUTO) 1.1 10^3/uL (1.5-3.5); LYMPHOCYTES % (AUTO) 18.7 %; MEAN CORPUSCULAR HEMOGLOBIN 29.1 pg (27.0-31.0); MEAN CORPUSCULAR HGB CONC 31.6 g/dL (32.0-36.0); MEAN PLATELET VOLUME 9.7 fL (7.9-10.8); MONOCYTES # (AUTO) 0.4 10^3/uL (0.0-1.0); MONOCYTES % (AUTO) 7.3 %; NEUTROPHILS # (AUTO) 4.3 10^3/uL (1.5-6.6); NEUTROPHILS % (AUTO) 71.2 %; PLT - PLATELET COUNT 200 10^3/uL (130-450); RED BLOOD COUNT 4.26 10^6/uL (4.20-5.40); RED CELL DISTRIBUTION WIDTH 12.6 % (12.0-15.0)
--- NOTE | 2024-01-23 15:43 | ED Physician Documentation ---
PD HPI SYNCOPE - Stated complaint Stated Complaint: SYNCOPE - Chief complaint Chief Complaint: Neuro - History obtained from History obtained from: Family - History of Present Illness Witnessed: Witnessed - Additional information Additional information: Patient is an 83-year-old female with a history of dementia presenting for evaluation of a syncopal episode. Per the daughter at the bedside, they had just showered at the patient and got her dressed for the day and had gone outside for a walk. Patient started to states she felt lightheaded and went to sit down. They laid her down onto the ground and they feel she had 1 minute of LOC. There was no witnessed seizure activity. They called 911. They report that she is currently on an antibiotic for a UTI and states that this is her third round of antibiotics.No head injury. Patient denies any complaints and does not know why she is here. Review of Systems Unable to obtain: Dementia PD PAST MEDICAL HISTORY - Past Medical History Past Medical History: Yes Cardiovascular: Hypertension Respiratory: None Neuro: Dementia Endocrine/Autoimmune: HyPOthyroidism GI: None CRIME SCENE PHOTOGRAPHER: None : None HEENT: Chronic vision loss Psych: None Musculoskeletal: Osteoarthritis Derm: None - Past Surgical History Past Surgical History: Yes General: Colonoscopy Ortho: Knee replacement /CRIME SCENE PHOTOGRAPHER: Tubal ligation HEENT: Cataracts, Other - Present Medications Home Medications: Ambulatory Orders Medication Instructions Recorded Confirmed Levothyroxine Sodium [Synthroid] 50 mcg PO DAILY 12/06/13 09/22/22 NIFEdipine [Procardia Xl] 30 mg PO ONCE 12/06/13 09/22/22 Nitrofurantoin [Macrobid] 100 mg PO BID 5 Days #9 cap 11/16/23 QUEtiapine [SEROquel] 25 mg PO QPM #14 tablet 12/20/23 - Allergies Allergies/Adverse Reactions: Allergies Allergy/AdvReac Type Severity Reaction Status Date / Time No Known Drug Allergies Allergy Verified 01/23/24 15:26 - Social History Does the pt smoke?: No Smoking Status: Never smoker Does the pt drink ETOH?: No Does the pt have substance abuse?: No - Immunizations Immunizations are current?: Yes - POLST Patient has POLST: No PD ED PE NORMAL - General General: No acute distress, Well developed/nourished. No: Alert and oriented X 3 (Alert and oriented to person and place, baseline per daughter) - HEENT HEENT: Atraumatic, PERRL, EOMI, Moist mucous membranes, Pharynx benign - Neck Neck: Supple, no meningeal sign - Cardiac Cardiac: RRR, Strong equal pulses - Respiratory Respiratory: No respiratory distress, Clear bilaterally - Abdomen Abdomen: Soft, Non tender, Non distended - Derm Derm: Warm and dry - Extremities Extremities: No deformity - Neuro Neuro: agriculture worker 2-12 intact, No motor deficit, No sensory deficit, Normal speech. No: Alert and oriented X 3 (Alert and oriented to baseline) Results - Vitals Vitals: Vital Signs - 24 hr 01/23/24 01/23/24 01/23/24 15:27 15:30 16:49 Temperature 36.8 C 36.8 C 36.5 C Heart Rate 80 80 73 Respiratory 12 16 16 Rate Blood Pressure 138/75 H 138/75 H 138/81 H O2 Saturation 99 99 98 Oxygen O2 Source Room air - EKG (time done) 1543 EKG releavant findings:: EKG personally interpreted by author of this note. Relevant findings are: Rate 82, normal sinus rhythm, QTc 455, no STEMI - Labs Labs: Laboratory Tests 01/23/24 01/23/24 15:38 15:38 WBC 6.0 RBC 4.26 Hgb 12.4 Hct 39.2 MCV 92.0 MCH 29.1 MCHC 31.6 L RDW 12.6 Plt Count 200 MPV 9.7 Neut # (Auto) 4.3 Lymph # (Auto) 1.1 L [place] # (Auto) 0.4 Eos # (Auto) 0.1 Baso # (Auto) 0.0 Absolute Nucleated RBC 0.00 Nucleated RBC % 0.0 Sodium 137 Potassium 3.5 Chloride 104 Carbon Dioxide 27 Anion Gap 6.0 BUN 11 Creatinine 0.9 Estimated GFR (MDRD) 60 L Glucose 101 Calcium 9.2 Total Bilirubin 0.6 AST 16 ALT 4 L Alkaline Phosphatase 76 Troponin I High Sens 4.7 Total Protein 6.5 Albumin 3.8 Globulin 2.7 Albumin/Globulin Ratio 1.4 Lipase 17 PD Medical Decision Making - ED course Complexity details: reviewed results, re-evaluated patient, d/w patient, d/w family ED course: Pt with syncopal episode while walking outside in the sun with family member. No head injury or seizure activity. Appears at baseline here with no complaints. Had not yet had lunch. EKG reviewed - NSR. CBC, chemistries, troponin reviewed with no significant findings. Pt and family eager for discharge, aware of need for follow up with PCP and usual return precautions. Departure - Departure Disposition: 01 Home, Self Care Clinical Impression: Syncope Condition: Stable Instructions: ED Fainting Unkn Cause Follow-Up: Kenneth Cloud MD [Primary Care Provider] - Comments: Please continue to stay hydrated. It is also important to take your time when changing positions. Return to the ER with any worsening or recurrence of your symptoms. Forms: PCP List Discharge Date/Time: 01/23/24 16:49
[2024-01-23 16:04] LABS: TROPONIN I HIGH SENSITIVITY 4.7 ng/L (2.3-14.8)
[2024-01-23 16:10] LABS: ALBUMIN 3.8 g/dL (3.2-5.5); ALBUMIN/GLOBULIN RATIO 1.4 (1.0-2.2); BILIRUBIN,TOTAL 0.6 mg/dL (0.2-1.0); CALCIUM 9.2 mg/dL (8.5-10.3); CREATININE 0.9 mg/dL (0.6-1.3); POTASSIUM 3.5 mmol/L (3.5-4.5); TOTAL PROTEIN 6.5 g/dL (6.4-8.9)
[2024-01-23 16:52] VITALS: BP 138/81; O2SAT 98
== END 2024-01-23 16:49 | disposition home or self-care (01) ==
LOC: EDUNIT# → ED 15:23
DX: R55 Syncope and collapse (principal); I10 Essential (primary) hypertension; F03.90 Unspecified dementia, unspecified severity, without behavioral disturbance, psychotic disturbance, mood disturbance, and anxiety; E03.9 Hypothyroidism, unspecified; Z79.899 Other long term (current) drug therapy
CPT/HCPCS: 36415; 80053; 83690; 84484; 85025; 93005; 99283; 99284

== ENCOUNTER 2024-03-12 16:11 | Emergency (ER) | payer MEDICARE, OTHER ==
[2024-03-12 16:43] LABS: BASOPHILS # (AUTO) 0.1 10^3/uL (0.0-0.1); BASOPHILS % (AUTO) 0.9 %; EOSINOPHILS # (AUTO) 0.1 10^3/uL (0.0-0.7); EOSINOPHILS % (AUTO) 1.4 %; HCT - HEMATOCRIT 37.9 % (37.0-47.0); LYMPHOCYTES # (AUTO) 1.3 10^3/uL (1.5-3.5); LYMPHOCYTES % (AUTO) 22.9 %; MEAN CORPUSCULAR HEMOGLOBIN 29.3 pg (27.0-31.0); MEAN CORPUSCULAR HGB CONC 31.7 g/dL (32.0-36.0); MEAN CORPUSCULAR VOLUME 92.7 fL (81.0-99.0); MEAN PLATELET VOLUME 10.2 fL (7.9-10.8); MONOCYTES # (AUTO) 0.4 10^3/uL (0.0-1.0); MONOCYTES % (AUTO) 7.9 %; NEUTROPHILS # (AUTO) 3.7 10^3/uL (1.5-6.6); NEUTROPHILS % (AUTO) 66.7 %; PLT - PLATELET COUNT 188 10^3/uL (130-450); RED BLOOD COUNT 4.09 10^6/uL (4.20-5.40); RED CELL DISTRIBUTION WIDTH 12.7 % (12.0-15.0); WHITE BLOOD COUNT 5.6 x10^3/uL (4.8-10.8)
[2024-03-12 17:00] LABS: ALBUMIN 4.1 g/dL (3.2-5.5); ALBUMIN/GLOBULIN RATIO 1.5 (1.0-2.2); BILIRUBIN,TOTAL 0.4 mg/dL (0.2-1.0); CALCIUM 9.8 mg/dL (8.5-10.3); CREATININE 1.1 mg/dL (0.6-1.3); POTASSIUM 4.5 mmol/L (3.5-4.5); TOTAL PROTEIN 6.9 g/dL (6.4-8.9)
[2024-03-12 18:12] LABS: BILIRUBIN,URINE NEGATIVE (NEGATIVE); GLUCOSE, URINE (UA) NEGATIVE (NEGATIVE); KETONES,URINE (UA) NEGATIVE (NEGATIVE); LEUKOCYTE ESTERASE, URINE TRACE (NEGATIVE); NITRITE,URINE NEGATIVE (NEGATIVE); OCCULT BLOOD,URINE NEGATIVE (NEGATIVE); PROTEIN,URINE NEGATIVE (NEGATIVE); UROBILINOGEN,URINE 0.2 (NORMAL) E.U./dL (NORMAL)
--- NOTE | 2024-03-12 18:17 | ED Physician Documentation ---
PD HPI FEMALE - Stated complaint Stated Complaint: - Chief complaint Chief Complaint: Abd Pain - History obtained from History obtained from: Patient, Family - Additional information Additional information: 83-year-old woman with dementia presents with her son who is her caregiver for the evaluation of some increased behavioral outbursts over the last few nights. Recent diagnosis of UTI and is on Bactrim for same. No culture data available here. She is on the second the last day of Bactrim. The last 2 nights she has had more behavioral outburst at night. They recently increased her Seroquel to 50 mg at night. No reported fevers. Potential constipation. She not eating or drinking very well. PD PAST MEDICAL HISTORY - Past Medical History Past Medical History: Yes Cardiovascular: Hypertension Respiratory: None Neuro: Dementia Endocrine/Autoimmune: HyPOthyroidism GI: None COURT COMMISSIONER: None : None HEENT: Chronic vision loss Psych: None Musculoskeletal: Osteoarthritis Derm: None - Past Surgical History Past Surgical History: Yes General: Colonoscopy Ortho: Knee replacement /COURT COMMISSIONER: Tubal ligation HEENT: Cataracts, Other - Present Medications Home Medications: Ambulatory Orders Medication Instructions Recorded Confirmed Levothyroxine Sodium [Synthroid] 50 mcg PO DAILY 12/06/13 09/22/22 NIFEdipine [Procardia Xl] 30 mg PO ONCE 12/06/13 09/22/22 Nitrofurantoin [Macrobid] 100 mg PO BID 5 Days #9 cap 11/16/23 QUEtiapine [SEROquel] 25 mg PO QPM #14 tablet 12/20/23 Ciprofloxacin [Cipro] 250 mg PO Q12H #6 tablet 03/12/24 - Allergies Allergies/Adverse Reactions: Allergies Allergy/AdvReac Type Severity Reaction Status Date / Time No Known Drug Allergies Allergy Verified 03/12/24 16:21 - Social History Does the pt smoke?: No Smoking Status: Never smoker Does the pt drink ETOH?: No Does the pt have substance abuse?: No - Immunizations Immunizations are current?: Yes - POLST Patient has POLST: No PD ED PE NORMAL - Vitals Vital signs reviewed: Yes - General General: Other (She is alert and oriented to person, calm and cooperative.) - Cardiac Cardiac: RRR, No murmur - Respiratory Respiratory: No respiratory distress, Clear bilaterally - Abdomen Abdomen: Normal bowel sounds, Soft, Non tender - Neuro Eye Opening: Spontaneous Motor: Obeys Commands Verbal: Confused GCS Score: 14 Results - Vitals Vitals: Vital Signs - 24 hr 03/12/24 03/12/24 16:16 18:59 Temperature 36.6 C Heart Rate 81 78 Respiratory 20 18 Rate Blood Pressure 125/59 L 128/72 O2 Saturation 100 98 Oxygen O2 Source Room air - Labs Labs: Laboratory Tests 03/12/24 03/12/24 03/12/24 16:35 16:35 18:01 WBC 5.6 RBC 4.09 L Hgb 12.0 Hct 37.9 MCV 92.7 MCH 29.3 MCHC 31.7 L RDW 12.7 Plt Count 188 MPV 10.2 Neut # (Auto) 3.7 Lymph # (Auto) 1.3 L [place] # (Auto) 0.4 Eos # (Auto) 0.1 Baso # (Auto) 0.1 Absolute Nucleated RBC 0.00 Nucleated RBC % 0.0 Sodium 137 Potassium 4.5 Chloride 106 Carbon Dioxide 23 Anion Gap 8.0 BUN 20 Creatinine 1.1 Estimated GFR (MDRD) 47 L Glucose 103 Calcium 9.8 Total Bilirubin 0.4 AST 27 ALT 10 Alkaline Phosphatase 66 Total Protein 6.9 Albumin 4.1 Globulin 2.8 Albumin/Globulin Ratio 1.5 Lipase 27 Urine Color YELLOW Urine Clarity CLEAR Urine pH 6.0 Ur Specific [place] 1.025 Urine Protein NEGATIVE Urine Glucose (UA) NEGATIVE Urine Ketones NEGATIVE Urine Occult Blood NEGATIVE Urine Nitrite NEGATIVE Urine Bilirubin NEGATIVE Urine Urobilinogen 0.2 (NORMAL) Ur Leukocyte Esterase TRACE H Urine RBC 0-5 Urine WBC 0-3 Ur Squamous Epith Cells FEW Squamous Urine Crystals 3-5 Calcium Oxalate Urine Bacteria Few Ur Microscopic Review INDICATED Urine Culture Comments INDICATED PD Medical Decision Making - ED course ED course: Son worried about persistent UTI in the setting increased behavioral issues and dementia. He is her primary caregiver. Here she is calm and cooperative with a normal exam other than her dementia. Workup in the emergency department showed normal CBC, CMP, and slight pyuria. She has been on Bactrim we do not know her microbiology, unclear if cultures have been done and they are not available regardless. We will start her on Cipro pending follow-up. Departure - Departure Disposition: 01 Home, Self Care Clinical Impression: Dementia, Cystitis Condition: Good Record reviewed to determine appropriate education?: Yes Instructions: ED Dementia Caregiver Support, ED UTI Cystitis Female Prescriptions: Ciprofloxacin [Cipro] 250 mg PO Q12H #6 tablet Comments: She still has mild persistent signs of urinary infection. We will perform a culture and call you if a change in antibiotic is necessary. I sent the prescription electronically to [email or web address] in [place]. Call your doctor to arrange a follow-up appointment, make the next available appointment. In the interim, return anytime if worse or if new symptoms develop. Forms: PCP List Discharge Date/Time: 03/12/24 18:59
[2024-03-12 18:28] LABS: CLARITY,URINE CLEAR (CLEAR)
[2024-03-12 18:31] LABS: BACTERIA,URINE Few /HPF (None Seen); RBC,URINE 0-5 /HPF (0-5); SQUAMOUS EPITHELIAL CELL,UR FEW Squamous (<= Few); WBC,URINE 0-3 /HPF (0-5)
[2024-03-12 18:32] LABS: CRYSTALS,URINE 3-5 Calcium Oxalate /LPF
[2024-03-12] MEDS: CIPROFLOXACIN 250 MG TABLET PO STA (18:56)
[2024-03-12 19:02] VITALS: BP 128/72; O2SAT 98
== END 2024-03-12 18:59 | disposition home or self-care (01) ==
LOC: ED 16:11
DX: F03.918 Unspecified dementia, unspecified severity, with other behavioral disturbance (principal); N30.90 Cystitis, unspecified without hematuria; I10 Essential (primary) hypertension; E03.9 Hypothyroidism, unspecified; Z79.899 Other long term (current) drug therapy
CPT/HCPCS: 36415; 80053; 81001; 83690; 85025; 87086; 99283; A9270; 81003

== ENCOUNTER 2024-04-13 14:37 | Outpatient (CLI) | payer MEDICARE, OTHER | END 2024-04-13 14:38 | disposition critical access hospital (66) | LOC: EMS 14:37 | DX: R55 Syncope and collapse (principal) | CPT/HCPCS: A0425; A0429 ==

== ENCOUNTER 2024-04-13 15:07 | Emergency (ER) | payer MEDICARE, OTHER ==
[2024-04-13 15:16] VITALS: O2SAT 100
--- NOTE | 2024-04-13 15:22 | ED Physician Documentation ---
PD HPI SYNCOPE - Stated complaint Stated Complaint: SYNCOPE - Chief complaint Chief Complaint: Neuro - History obtained from History obtained from: Patient, Family, EMS - History of Present Illness Witnessed: Witnessed Timing - onset: Today Preceding symptoms: No: Headache, Vision changes, Chest pain, Palpitations, Diaphoresis, Dyspnea, Abdominal pain, Nausea / vomiting Associated symptoms: No: Headache, Chest pain, Palpitations, Diaphoresis Injury occurred: No: Fell, Head injury, Neck injury, Bit tongue Pain level max: 0 Pain level now: 0 - Additional information Additional information: 83-year-old female brought in by EMS today for a syncopal event at home. She went on a walk today with her family, sat in the hot sun with a sweatshirt on, came back into the house sat on the couch and had a syncopal event. Lasted for a few minutes. No loss of pulse. She did have slower than normal respirations during this event per family. Similar event 2 months ago after going for a walk outside as well. She is asymptomatic. No falls. No chest pain. No shortness of breath. Has a history of Alzheimer's dementia. Oriented to person only. Review of Systems Constitutional: denies: Fever, Chills Nose: denies: Rhinorrhea / runny nose, Congestion Throat: denies: Sore throat Cardiac: denies: Chest pain / pressure, Palpitations Respiratory: denies: Cough GI: denies: Nausea, Vomiting, Diarrhea Skin: denies: Rash Musculoskeletal: denies: Neck pain, Back pain Neurologic: denies: Headache PD PAST MEDICAL HISTORY - Past Medical History Cardiovascular: Hypertension Respiratory: None Neuro: Dementia Endocrine/Autoimmune: HyPOthyroidism GI: None JR. SYSTEMS ADMINISTRATOR: None : None HEENT: Chronic vision loss Psych: None Musculoskeletal: Osteoarthritis Derm: None - Past Surgical History Past Surgical History: Yes General: Colonoscopy Ortho: Knee replacement /JR. SYSTEMS ADMINISTRATOR: Tubal ligation HEENT: Cataracts, Other - Present Medications Home Medications: Ambulatory Orders Medication Instructions Recorded Confirmed Levothyroxine Sodium [Synthroid] 50 mcg PO DAILY 12/06/13 09/22/22 NIFEdipine [Procardia Xl] 30 mg PO ONCE 12/06/13 09/22/22 Nitrofurantoin [Macrobid] 100 mg PO BID 5 Days #9 cap 11/16/23 QUEtiapine [SEROquel] 25 mg PO QPM #14 tablet 12/20/23 Ciprofloxacin [Cipro] 250 mg PO Q12H #6 tablet 03/12/24 - Allergies Allergies/Adverse Reactions: Allergies Allergy/AdvReac Type Severity Reaction Status Date / Time No Known Drug Allergies Allergy Verified 04/13/24 15:37 - Social History Does the pt smoke?: No Smoking Status: Never smoker Does the pt drink ETOH?: No Does the pt have substance abuse?: No - Immunizations Immunizations are current?: Yes - POLST Patient has POLST: No PD ED PE NORMAL - Vitals Vital signs reviewed: Yes - General General: Alert and oriented X 3, No acute distress - HEENT HEENT: Atraumatic, PERRL, EOMI, Moist mucous membranes - Neck Neck: Supple, no meningeal sign - Cardiac Cardiac: RRR, Strong equal pulses - Respiratory Respiratory: No respiratory distress, Clear bilaterally - Abdomen Abdomen: Soft, Non tender, Non distended - Back Back: No spinal TTP - Derm Derm: Warm and dry - Extremities Extremities: No edema, No calf tenderness / cord - Neuro Neuro: Alert and oriented X 3, cork pressing machine operator 2-12 intact, No motor deficit, No sensory deficit, Normal speech Eye Opening: Spontaneous Motor: Obeys Commands Verbal: Oriented GCS Score: 15 - Psych Psych: Normal mood, Normal affect Results - Vitals Vitals: Vital Signs - 24 hr 04/13/24 04/13/24 15:11 16:54 Temperature 36.4 C L Heart Rate 74 71 Respiratory 18 18 Rate Blood Pressure 138/75 H 136/82 H O2 Saturation 100 100 Oxygen O2 Source Room air - EKG (time done) 1530 EKG releavant findings:: EKG personally interpreted by author of this note. Relevant findings are: Rate: Rate (enter#) (72) Rhythm: NSR [place]: Normal Intervals: Normal IA QRS: Normal Ischemia: Normal ST segments - Labs Labs: Laboratory Tests 04/13/24 04/13/24 15:31 15:31 WBC 5.1 RBC 4.11 L Hgb 11.8 L Hct 37.4 MCV 91.0 MCH 28.7 MCHC 31.6 L RDW 12.4 Plt Count 151 MPV 10.6 Neut # (Auto) 3.6 Lymph # (Auto) 1.0 L [place] # (Auto) 0.4 Eos # (Auto) 0.1 Baso # (Auto) 0.0 Absolute Nucleated RBC 0.00 Nucleated RBC % 0.0 Sodium 139 Potassium 4.0 Chloride 109 Carbon Dioxide 26 Anion Gap 4.0 L BUN 16 Creatinine 0.9 Estimated GFR (MDRD) 60 L Glucose 98 Calcium 9.0 Total Bilirubin 0.5 AST 15 ALT 5 L Alkaline Phosphatase 52 Troponin I High Sens 6.0 Total Protein 5.5 L Albumin 3.7 Globulin 1.8 L Albumin/Globulin Ratio 2.1 Lipase 22 - Rads (name of study) cxr Relevant Findings:: Final report received, See rad report PD Medical Decision Making - ED course Complexity details: reviewed results, re-evaluated patient, considered differential, d/w patient ED course: 83-year-old female with a syncopal event today. Similar event 2 months ago. Had been outside in the warm weather, did not eat and drink as much today. Asymptomatic here. Feels better after IV fluids. No arrhythmias on telemetry. No chest pain. No palpitations. No shortness of breath. Ambulating without difficulty here. Appears to be at her baseline. Will have her follow-up with her doctor for cardiac monitoring. No focal neurological deficits. NIH stroke scale 0. Family counseled regarding signs and symptoms for which I believe and urgent re-evaluation would be necessary. Family with good understanding of and agreement to plan and is comfortable going home at this time This document was made in part using voice recognition software. While efforts are made to proofread this document, sound alike and grammatical errors may occur. Departure - Departure Disposition: 01 Home, Self Care Clinical Impression: Syncope Qualifiers: Syncope type: unspecified Qualified Code(s): R55 - Syncope and collapse Condition: Good Instructions: ED Fainting Unkn Cause Follow-Up: Kenneth Cloud MD [Primary Care Provider] - Comments: Your testing does not show any acute abnormalities today. Please follow-up with your doctor for further care. Make sure you are drinking plenty of fluids. Your doctor may want to consider a heart monitor to monitor for any sorts of arrhythmias. There are no arrhythmias on your telemetry monitoring today. Forms: PCP List Discharge Date/Time: 04/13/24 16:54
[2024-04-13] MEDS: SODIUM CHLORIDE 0.9% 1,000 ML IV STA (15:24)
[2024-04-13 15:38] LABS: BASOPHILS % (AUTO) 0.6 %; EOSINOPHILS # (AUTO) 0.1 10^3/uL (0.0-0.7); EOSINOPHILS % (AUTO) 1.8 %; HCT - HEMATOCRIT 37.4 % (37.0-47.0); HGB - HEMOGLOBIN 11.8 g/dL (12.0-16.0); LYMPHOCYTES % (AUTO) 19.4 %; MEAN CORPUSCULAR HEMOGLOBIN 28.7 pg (27.0-31.0); MEAN CORPUSCULAR HGB CONC 31.6 g/dL (32.0-36.0); MEAN PLATELET VOLUME 10.6 fL (7.9-10.8); MONOCYTES # (AUTO) 0.4 10^3/uL (0.0-1.0); MONOCYTES % (AUTO) 7.6 %; NEUTROPHILS # (AUTO) 3.6 10^3/uL (1.5-6.6); NEUTROPHILS % (AUTO) 70.4 %; PLT - PLATELET COUNT 151 10^3/uL (130-450); RED BLOOD COUNT 4.11 10^6/uL (4.20-5.40); RED CELL DISTRIBUTION WIDTH 12.4 % (12.0-15.0); WHITE BLOOD COUNT 5.1 x10^3/uL (4.8-10.8)
--- NOTE | 2024-04-13 16:07 | XRAY Report ---
PROCEDURE: Chest 1V INDICATIONS: Chest Pain TECHNIQUE: One view of the chest was acquired. COMPARISON: CT chest 03/13/2022 FINDINGS: Surgical changes and devices: None. Lungs and pleura: No pleural effusions or pneumothorax. Lungs are clear. Mediastinum: Mediastinal contours appear normal. Heart size is normal. Bones and chest wall: No suspicious bony lesions. Overlying soft tissues appear unremarkable. IMPRESSION: No acute cardiopulmonary process. Reviewed by: Cassandra Saenz MD on 04/13/2024 4:06 PM PDT Approved by: Cassandra Saenz MD on 04/13/2024 4:06 PM PDT Station ID: [id number]
[2024-04-13 16:08] LABS: ALBUMIN 3.7 g/dL (3.2-5.5); ALBUMIN/GLOBULIN RATIO 2.1 (1.0-2.2); BILIRUBIN,TOTAL 0.5 mg/dL (0.2-1.0); CREATININE 0.9 mg/dL (0.6-1.3); TOTAL PROTEIN 5.5 g/dL (6.4-8.9)
[2024-04-13 17:00] VITALS: BP 136/82
== END 2024-04-13 16:54 | disposition home or self-care (01) ==
LOC: ED 15:07
DX: R55 Syncope and collapse (principal); G30.9 Alzheimer's disease, unspecified; F02.80 Dementia in other diseases classified elsewhere, unspecified severity, without behavioral disturbance, psychotic disturbance, mood disturbance, and anxiety; I10 Essential (primary) hypertension; E03.9 Hypothyroidism, unspecified; Z79.899 Other long term (current) drug therapy
CPT/HCPCS: 36415; 80053; 83690; 84484; 85025; 93005; 99284